=== PATIENT | female | born 1955 | race Caucasian/White ===

== ENCOUNTER 2017-12-25 09:48 | Outpatient (CLI) | payer BC ==
[2017-12-25] MEDS: ALPRAZolam 0.5 MG TABLET PO (10:11)
[2017-12-25] MEDS ORDERED: LIDOCAINE 1% Multi-Dose 20 ML VIAL. INJ (10:15)
[2017-12-25 13:22] LABS: CSF PROTEIN 39.5 mg/dL (15.0-45.0)
[2017-12-25 13:22] LABS: CSF GLUCOSE 168 mg/dL (37-70)
== END 2017-12-25 15:39 | disposition home or self-care (01) ==
LOC: RAD 09:48
DX: R51 Headache (principal); I10 Essential (primary) hypertension; E11.9 Type 2 diabetes mellitus without complications; J43.9 Emphysema, unspecified; I25.10 Atherosclerotic heart disease of native coronary artery without angina pectoris; M79.7 Fibromyalgia; F32.89 Other specified depressive episodes; F41.9 Anxiety disorder, unspecified; Z90.49 Acquired absence of other specified parts of digestive tract; Z95.5 Presence of coronary angioplasty implant and graft; Z79.899 Other long term (current) drug therapy; Z98.890 Other specified postprocedural states; Z90.710 Acquired absence of both cervix and uterus; Z87.440 Personal history of urinary (tract) infections; Z79.82 Long term (current) use of aspirin; Z79.01 Long term (current) use of anticoagulants
CPT/HCPCS: 62270; 82945; 84157

== ENCOUNTER 2019-01-23 18:16 | Observation (INO) | payer BC ==
[~2019-01-23] VITALS: Ht 167.6 cm; Wt 87.8 kg
[~2019-01-23 18:16] MED LIST: ALBU2.5V8 INH; ASPI-252 PO; ASPI325T8 PO; ATOR10TA60 PO; ATOR40TA59 PO; BUSP10TA PO; CARV25TA2 PO; CIPR500T6 PO; CLON0.1T PO; DAPA5TAB PO; DEXT10TA23 PO; DEXT20TA2 PO; DEXT30TA2 PO; DIAZ5TAB PO; EMPA1TAB3 PO; HYDR-2765 PO; HYDR-2769 PO; LINA5TAB PO; MAG355OR12 PO; METF10007 PO; NADO20TA PO; NAPR-677 PO; NORT10CA PO; NORT10SO PO; NORT25CA PO; OXYC1TAB22 PO; PANT40TA5 PO; SERT100T PO; SERT25TA PO; TEMA30CA PO; TIZA4TAB PO; VALIUM10 MG PO; VENL150C PO; VENL150C6 PO; VENL25TA PO; VENL37.5 PO; VENL75CA6 PO; WARF-78 PO; ZALE5CAP PO; ZOLP10TA PO; ZOLP10TA4 PO; ZOLP5TAB5 PO
[2019-01-23] MEDS ORDERED: ASPIRIN CHEWABLE 81 MG TABLET. PO ONE (18:30)
--- NOTE | 2019-01-23 18:31 | PHYS DOC ---
Past Medical History Past Medical History: Anxiety, Arthritis, CAD, Depression, Diabetes-Type II, DVT, Fibromyalgia, High Cholesterol, Hypertension, Migraines (KEVIN POLO) Past Surgical History: Cholecystectomy, Coronary Bypass Surgery, , Hysterectomy, Knee Replacement Additional Past Surgical Histo: neck fusion , BX carpel tunnel , hernia, L KNEE REPLACEMENT (KEVIN POLO) Alcohol Use: Occasionally Drug Use: None (KEVIN POLO) Adult General Chief Complaint Chief Complaint: CHEST PAIN HPI HPI Patient is a 63 year old female with a history of CAD, anxiety, diabetes and hypertension with a triple bypass 13 years ago presents to the ED complaining of chest pain 2 hours ago. Patient states that she has been having acute bronchitis over the last 3 weeks that she is finally getting over. States she thought the pain was from that. States her pain had worsened around 4 PM. Describes the pain as sharp/pressure. Rates the pain as 8 out of 10. Patient also reports a history of blood clots. Complains of mild shortness of breath. Denies lower leg swelling, recent travel, abdominal pain, nausea/vomiting, fever , neck pain, jaw pain vision changes or headache. (KEVIN POLO) Review of Systems Review of Systems Constitutional: Denies fever or chills [] Eyes: Denies change in visual acuity, redness, or eye pain [] HENT: Denies nasal congestion or sore throat [] Respiratory: Complains of shortness of breath. Denies cough. [] Cardiovascular: No additional information not addressed in HPI [] GI: Denies abdominal pain, nausea, vomiting, bloody stools or diarrhea [] : Denies dysuria or hematuria [] Musculoskeletal: Denies back pain or joint pain [] Integument: Denies rash or skin lesions [] Neurologic: Denies headache, focal weakness or sensory changes [] All other systems were reviewed and found to be within normal limits, except as documented in this note. (KEVIN POLO) Current Medications Current Medications Current Medications Medications (Trade) Dose Ordered Sig/Joycelyn Start Time Stop Time Status Last Admin Dose Admin Aspirin (Children'S Aspirin) 324 mg 1X ONCE 01/23/19 18:30 01/23/19 18:31 DC 01/23/19 18:59 324 MG Fentanyl Citrate (Fentanyl 2ml Vial) 75 mcg 1X ONCE 01/23/19 19:00 01/23/19 19:03 DC Ondansetron HCl (Zofran) 4 mg 1X ONCE 01/23/19 19:00 01/23/19 19:03 DC (KEVIN POLO) Allergies Allergies Allergies Coded Allergies Type Severity Reaction Last Updated Verified prochlorperazine edisylate Allergy Severe DYSPNEA 07/20/15 Yes prochlorperazine maleate Allergy Severe DYSPNEA 07/20/15 Yes Penicillins Allergy Intermediate HIVES 07/20/15 Yes ketorolac tromethamine Allergy Intermediate BLISTERS AROUND IV INJECTION SITE 07/20/15 Yes (KEVIN POLO) Physical Exam Physical Exam Constitutional: Well developed, well nourished, no acute distress, non-toxic appearance. [] HENT: Normocephalic, atraumatic Eyes: PERRLA, EOMI, conjunctiva normal, no discharge. [] Neck: Normal range of motion, no tenderness, supple, no stridor. [] Cardiovascular:Heart rate regular rhythm, no murmur [] Lungs & Thorax: Bilateral breath sounds clear to auscultation [] Abdomen: Bowel sounds normal, soft, no tenderness, no masses, no pulsatile masses. [] Skin: Warm, dry, no erythema, no rash. [] Back: No tenderness, no CVA tenderness. [] Extremities: No tenderness, no cyanosis, no clubbing, ROM intact, no edema. [] Neurologic: Alert and oriented X 3, normal motor function, normal sensory function, no focal deficits noted. [] Psychologic: Affect normal, judgement normal, mood normal. [] (KEVIN POLO) Current Patient Data Vital Signs Vital Signs Date Time Temp Pulse Resp B/P (MAP) Pulse Ox O2 Delivery O2 Flow Rate FiO2 01/23/19 18:20 98.2 85 18 170/80 (110) 97 Room Air 98.2 Lab Values Laboratory Tests Test 01/23/19 18:20 01/23/19 18:30 White Blood Count 6.1 x10^3/uL (4.0-11.0) Red Blood Count 4.67 x10^6/uL (3.50-5.40) Hemoglobin 12.9 g/dL (12.0-15.5) Hematocrit 40.3 % (36.0-47.0) Mean Corpuscular Volume 86 fL (79-100) Mean Corpuscular Hemoglobin 28 pg (25-35) Mean Corpuscular Hemoglobin Concent 32 g/dL (31-37) Red Cell Distribution Width 14.2 % (11.5-14.5) Platelet Count 223 x10^3/uL (140-400) Neutrophils (%) (Auto) 44 % (31-73) Lymphocytes (%) (Auto) 46 % (24-48) Monocytes (%) (Auto) 7 % (0-9) Eosinophils (%) (Auto) 2 % (0-3) Basophils (%) (Auto) 1 % (0-3) Neutrophils # (Auto) 2.7 x10^3uL (1.8-7.7) Lymphocytes # (Auto) 2.8 x10^3/uL (1.0-4.8) Monocytes # (Auto) 0.4 x10^3/uL (0.0-1.1) Eosinophils # (Auto) 0.1 x10^3/uL (0.0-0.7) Basophils # (Auto) 0.0 x10^3/uL (0.0-0.2) D-Dimer (Desiree) 0.34 ug/mlFEU (0.00-0.50) Sodium Level 138 mmol/L (136-145) Potassium Level 4.5 mmol/L (3.5-5.1) Chloride Level 98 mmol/L (98-107) Carbon Dioxide Level 28 mmol/L (21-32) Anion Gap 12 (6-14) Blood Urea Nitrogen 15 mg/dL (7-20) Creatinine 1.0 mg/dL (0.6-1.0) Estimated GFR (Cockcroft-Gault) 56.2 BUN/Creatinine Ratio 15 (6-20) Glucose Level 193 mg/dL (70-99) H Calcium Level 9.6 mg/dL (8.5-10.1) Magnesium Level 1.7 mg/dL (1.8-2.4) L Total Bilirubin 0.3 mg/dL (0.2-1.0) Aspartate Amino Transferase (AST) 13 U/L (15-37) L Alanine Aminotransferase (ALT) 21 U/L (14-59) Alkaline Phosphatase 39 U/L (46-116) L Troponin I Quantitative < 0.017 ng/mL (0.000-0.055) Total Protein 7.9 g/dL (6.4-8.2) Albumin 4.0 g/dL (3.4-5.0) Albumin/Globulin Ratio 1.0 (1.0-1.7) Urine Collection Type Unknown Urine Color Yellow Urine Clarity Clear Urine pH 6.0 Urine Specific [place] 1.020 Urine Protein Negative mg/dL (NEG-TRACE) Urine Glucose (UA) >=1000 mg/dL (NEG) Urine Ketones (Stick) Negative mg/dL (NEG) Urine Blood Negative (NEG) Urine Nitrite Negative (NEG) Urine Bilirubin Negative (NEG) Urine Urobilinogen Dipstick 0.2 mg/dL (0.2 mg/dL) Urine Leukocyte Esterase Negative (NEG) Urine RBC 0 /HPF (0-2) Urine WBC 0 /HPF (0-4) Urine Squamous Epithelial Cells Few /LPF Urine Bacteria 0 /HPF (0-FEW) Urine Yeast Present /HPF Laboratory Tests 01/23/19 18:20 Laboratory Tests 01/23/19 18:20 (KEVIN POLO) EKG EKG [] (KEVIN POLO) Radiology/Procedures Radiology/Procedures [] (KEVIN POLO) Course & Med Decision Making Course & Med Decision Making Pertinent Labs and Imaging studies reviewed. (See chart for details) Aspirin given upon arrival. Patient resting comfortably at this time. []Discussed lab and imaging findings with patients PCP, Dr. Aden. Agrees to admission and further management patient. Patient stable for admission. Requests cardiology consult. (KEVIN POLO) Course & Med Decision Making Staff Physician Addendum: I was working in the ER during the course of this patient's visit. I was available for consultation as needed, but I was not directly involved in the care of this patient. (ELIANA DRISCOLL MD) Dragon Disclaimer Dragon Disclaimer This electronic medical record was generated, in whole or in part, using a voice recognition dictation system. (KEVIN POLO) Departure Departure Impression: Primary Impression: Chest pain Disposition: 09 ADMITTED INPATIENT Admitting Physician: Tomy Aden (KEVIN POLO) Condition: STABLE Referrals: TOMY ADEN MD (PCP) KEVIN POLO Jan 23, 2019 18:31 ELIANA DRISCOLL MD Jan 24, 2019 04:26
[2019-01-23 18:39] LABS: BASO % 1 % (0-3); EOS # 0.1 x10^3/uL (0.0-0.7); EOS % 2 % (0-3); HEMATOCRIT 40.3 % (36.0-47.0); HEMOGLOBIN 12.9 g/dL (12.0-15.5); LYMPH # 2.8 x10^3/uL (1.0-4.8); LYMPH % 46 % (24-48); MEAN CORPUSCULAR HEMOGLOBIN 28 pg (25-35); MEAN CORPUSCULAR HGB CONC 32 g/dL (31-37); MEAN CORPUSCULAR VOLUME 86 fL (79-100); MONO # 0.4 x10^3/uL (0.0-1.1); MONO % 7 % (0-9); NEUT # 2.7 x10^3uL (1.8-7.7); NEUT % 44 % (31-73); PLATELET COUNT 223 x10^3/uL (140-400); RED BLOOD COUNT 4.67 x10^6/uL (3.50-5.40); RED CELL DISTRIBUTION WIDTH 14.2 % (11.5-14.5); WHITE BLOOD COUNT 6.1 x10^3/uL (4.0-11.0)
[2019-01-23 18:47] LABS: BILIRUBIN,URINE NEGATIVE (NEG); CLARITY,URINE CLEAR; COLOR,URINE YELLOW; NITRITE,URINE NEGATIVE (NEG); PROTEIN,URINE NEGATIVE (NEG-TRACE); UROBILINOGEN,URINE 0.2 mg/dL (0.2 mg/dL)
[2019-01-23 18:51] LABS: BACTERIA,URINE 0 /HPF (0-FEW); RBC,URINE 0 /HPF (0-2); SQUAMOUS EPITHELIAL CELL,UR FEW /LPF; WBC,URINE 0 /HPF (0-4); YEAST,URINE PRESENT /HPF
[2019-01-23 18:51] LABS: CALCIUM 9.6 mg/dL (8.5-10.1); GFR 56.2; POTASSIUM 4.5 mmol/L (3.5-5.1)
[2019-01-23 18:57] LABS: MAGNESIUM 1.7 mg/dL (1.8-2.4); TOTAL BILIRUBIN 0.3 mg/dL (0.2-1.0); TOTAL PROTEIN 7.9 g/dL (6.4-8.2)
[2019-01-23] MEDS ORDERED: fentaNYL PF VIAL 100 MCG/2 ML VIAL IV ONE (19:00)
[2019-01-23] MEDS ORDERED: ONDANSETRON PF 4 MG/2 ML VIAL. IV ONE (19:00)
[2019-01-23] MEDS ORDERED: ACETAMINOPHEN 325 MG TABLET. PO PRN (20:30)
[2019-01-23] MEDS ORDERED: ONDANSETRON PF 4 MG/2 ML VIAL. IV PRN (20:30)
[2019-01-23 21:00] VITALS: BP 147/74
--- NOTE | 2019-01-23 21:00 | NUR ---
Pt admitted to unit from ER with c/o chest pain that started earlier in the day. Pt is A/Ox4, on RA, up adlib and tolerating well. Pt states pain is under her left breast and radiates to left shoulder. H&P and med rec completed, VSS, pt is SR on telemetry, call light within reach, bed in low/locked position. Will continue to monitor for status changes.
[2019-01-23] MEDS ORDERED: CRESTOR10 MG PO (21:36)
[2019-01-23] MEDS ORDERED: ONDA4TAB11 PO (21:45)
[2019-01-23] MEDS ORDERED: TEMA15CA6 PO (21:45)
[2019-01-23] MEDS ORDERED: MULT-245 PO (21:45)
[2019-01-23] MEDS ORDERED: L.AC1CAP6 PO (21:45)
[2019-01-23] MEDS ORDERED: ONDANSETRON ODT 4 MG TAB.RAPDIS. PO PRN (22:15)
[2019-01-23] MEDS: fentaNYL PF VIAL 100 MCG/2 ML VIAL IV PRN (22:27)
[2019-01-23] MEDS ORDERED: TEMAZEPAM 15 MG CAPSULE PO SCH (22:45)
[2019-01-23] MEDS ORDERED: cloNIDine HCL 0.1 MG TABLET PO SCH (22:45)
[2019-01-23] MEDS ORDERED: DEXTROSE 50% 25 GM / 50ML DISP.SYRIN. IV PRN (23:30)
[2019-01-23 23:31] VITALS: BP 129/59
[2019-01-24] MEDS: fentaNYL PF VIAL 100 MCG/2 ML VIAL IV PRN ×3 (02:03→07:59)
[2019-01-24 03:36] VITALS: BP 119/57
[2019-01-24] MEDS ORDERED: MAGNESIUM SULFATE 2GM 50 ML IV ONE (04:00)
--- NOTE | 2019-01-24 05:42 | EKG ---
[facility] [address] [place] [address] Test Date: 2019-01-23 Test Time: 18:23:29 Pat Name: TANIYA DIAZ Department: Room: [facility] Gender: F Engine Wiper: : 1955 Requested By: KEVIN POLO Order Number: [id number] Reading MD: Jian Orozco Measurements Intervals Millen Rate: 80 P: 50 NM: 172 QRS: 2 QRSD: 82 T: 47 QT: 382 QTc: 444 Interpretive Statements SINUS RHYTHM LEFT ATRIAL ABNORMALITY Electronically Signed On 01-28-2019 13:29:18 CDT by Jian Orozco
[2019-01-24 07:00] VITALS: BP 136/70
[2019-01-24] MEDS ORDERED: PANTOPRAZOLE 40 MG TABLET.DR. PO SCH (07:30)
[2019-01-24] MEDS ORDERED: INSULIN LISPRO 300 UNITS/3 ML INSULN.PEN. SQ SCH (07:30)
[2019-01-24] MEDS ORDERED: metFORMIN 500 MG TABLET PO SCH (07:30)
[2019-01-24 07:36] LABS: ALBUMIN 3.5 g/dL (3.4-5.0); CALCIUM 9.1 mg/dL (8.5-10.1); CREATININE 0.8 mg/dL (0.6-1.0); GFR 72.7; POTASSIUM 4.6 mmol/L (3.5-5.1); TOTAL BILIRUBIN 0.3 mg/dL (0.2-1.0)
[2019-01-24] MEDS ORDERED: ASPIRIN ENTERIC COATED 325 MG TABLET.DR. PO SCH (08:00)
--- NOTE | 2019-01-24 08:17 | RAD ---
PORTABLE CHEST 1V History: CHEST PAIN Comparison: December 18, 2017 Findings: Single view of the chest is submitted. There again has been a median sternotomy. Heart size is stable. There is cervical fusion hardware. There is no lobar consolidation, pleural fluid, pneumothorax. There is calcific tendinosis of the bilateral shoulders Impression: 1. No acute radiographic abnormality is identified. Electronically signed by: Herb Bo MD (01/24/2019 8:14 AM) [id number]
[2019-01-24] MEDS ORDERED: LACTOBACILLUS RHAMNOSUS GG 1 CAPSULE. PO SCH (09:00)
[2019-01-24] MEDS ORDERED: LINAGLIPTIN PO SCH (09:00)
[2019-01-24] MEDS ORDERED: SERTRALINE 50 MG TABLET. PO SCH (09:00)
[2019-01-24] MEDS ORDERED: EMPAGLIFLOZIN PO SCH (09:00)
[2019-01-24] MEDS ORDERED: MULTIVITAMIN with MINERAL TABLET. PO SCH (09:00)
--- NOTE | 2019-01-24 09:26 | PDOC2 ---
ABBEY VEGAS CERTIFIED DIABETES EDUCATOR 01/24/19 0926: CARDIAC CONSULT DATE OF CONSULT Date of Consult DATE: 01/24/19 TIME: 09:16 REASON FOR CONSULT Reason for Consult: Chest pain REFERRING PHYSICIAN Referring Physician: Dr. Viveros SOURCE Source: Chart review, Patient HISTORY OF PRESENT ILLNESS HISTORY OF PRESENT ILLNESS This is a 63 yo female who presented secondary to chest pain. Patient reports she has had chronic cough/bronchitis for the last two months. Has been treated with antibiotic and steroids by PCP. Cough persists. Yesterday, began having pain under her left breath when she would cough. Worse with deep breath. Pain seemed to radiated through to her back, which was concerning for her due to her history of CAD s/p CABG. Was unable to get in with her PCP yesterday, so she came into the ED for further evaluation and treatment. Has chronic pain for which she takes Percocet at home. No dizziness, diaphoresis, palpitations, or nausea/vomiting. PAST MEDICAL HISTORY Cardiovascular: CAD, HTN, Hyperlipidemia (DVT) Pulmonary: Asthma, Pulmonary embolus, Pneumonia CENTRAL NERVOUS SYSTEM: Periperal neuropathy GI: No pertinent hx Heme/Onc: No pertinent hx Hepatobiliary: No pertinent hx Psych: Depression Musculoskeletal: low back pain, Osteoarthritis Rheumatologic: Fibromyalgia Infectious disease: No pertinent hx ENT: No pertinent hx Renal/: No pertinent hx Endocrine: Diabetes Dermatology: No pertinent hx PAST SURGICAL HISTORY Past Surgical History: Cholecystectomy, CABG, Hernia Repair, Total knee replacement (left ), Tonsillectomy, Hysterectomy FAMILY HISTORY Family History: Heart Disease SOCIAL HISTORY Smoke: No ALCOHOL: none Drugs: None Lives: Alone CURRENT MEDICATIONS CURRENT MEDICATIONS Current Medications Medications (Trade) Dose Ordered Sig/Joycelyn Route PRN Reason Start Time Stop Time Status Last Admin Dose Admin Aspirin (Children'S Aspirin) 324 mg 1X ONCE PO 01/23/19 18:30 01/23/19 18:31 DC 01/23/19 18:59 Fentanyl Citrate (Fentanyl 2ml Vial) 75 mcg 1X ONCE IV 01/23/19 19:00 01/23/19 19:03 DC 01/23/19 20:08 Ondansetron HCl (Zofran) 4 mg 1X ONCE IV 01/23/19 19:00 01/23/19 19:03 DC 01/23/19 20:06 Fentanyl Citrate (Fentanyl 2ml Vial) 50 mcg PRN Q1HR PRN IV PAIN 01/23/19 20:30 01/24/19 20:29 01/24/19 07:59 Clonidine HCl (Catapres) 0.1 mg QHS PO 01/23/19 22:45 01/23/19 22:45 Temazepam (Restoril) 15 mg QHS PO 01/23/19 22:45 01/23/19 22:45 Magnesium Sulfate 50 ml @ 25 mls/hr 1X ONCE IV 01/24/19 04:00 01/24/19 05:59 DC 01/24/19 04:23 ALLERGIES ALLERGIES: Coded Allergies: prochlorperazine edisylate (Verified Allergy, Severe, DYSPNEA, 07/20/15) prochlorperazine maleate (Verified Allergy, Severe, DYSPNEA, 07/20/15) Penicillins (Verified Allergy, Intermediate, HIVES, 07/20/15) ketorolac tromethamine (Verified Allergy, Intermediate, BLISTERS AROUND IV INJECTION SITE, 07/20/15) ROS Review of System 14 point ROS conducted with pertinent positives noted above in HPI. PHYSICAL EXAM General: Alert, Oriented X3, Cooperative HEENT: Atraumatic Lungs: Clear to auscultation, Normal air movement Heart: Regular rate, Normal S1, Normal S2, No murmurs Abdomen: No tenderness Extremities: No edema, Normal pulses Skin: No significant lesion Neuro: Normal speech, Sensation intact Psych/Mental Status: Mental status NL, Other (anxious ) MUSCULOSKELETAL: Osteoarthritic changes both hands VITALS VITALS Vital Signs Date Time Temp Pulse Resp B/P (MAP) Pulse Ox O2 Delivery O2 Flow Rate FiO2 01/24/19 07:59 Room Air 01/24/19 07:00 98.2 72 18 136/70 (92) 97 98.2 LABS Lab: Laboratory Tests Test 01/23/19 18:20 01/23/19 18:30 01/24/19 00:55 01/24/19 06:30 White Blood Count 6.1 x10^3/uL (4.0-11.0) Red Blood Count 4.67 x10^6/uL (3.50-5.40) Hemoglobin 12.9 g/dL (12.0-15.5) Hematocrit 40.3 % (36.0-47.0) Mean Corpuscular Volume 86 fL (79-100) Mean Corpuscular Hemoglobin 28 pg (25-35) Mean Corpuscular Hemoglobin Concent 32 g/dL (31-37) Red Cell Distribution Width 14.2 % (11.5-14.5) Platelet Count 223 x10^3/uL (140-400) Neutrophils (%) (Auto) 44 % (31-73) Lymphocytes (%) (Auto) 46 % (24-48) Monocytes (%) (Auto) 7 % (0-9) Eosinophils (%) (Auto) 2 % (0-3) Basophils (%) (Auto) 1 % (0-3) Neutrophils # (Auto) 2.7 x10^3uL (1.8-7.7) Lymphocytes # (Auto) 2.8 x10^3/uL (1.0-4.8) Monocytes # (Auto) 0.4 x10^3/uL (0.0-1.1) Eosinophils # (Auto) 0.1 x10^3/uL (0.0-0.7) Basophils # (Auto) 0.0 x10^3/uL (0.0-0.2) D-Dimer (Desiree) 0.34 ug/mlFEU (0.00-0.50) Sodium Level 138 mmol/L (136-145) 140 mmol/L (136-145) Potassium Level 4.5 mmol/L (3.5-5.1) 4.6 mmol/L (3.5-5.1) Chloride Level 98 mmol/L (98-107) 102 mmol/L (98-107) Carbon Dioxide Level 28 mmol/L (21-32) 27 mmol/L (21-32) Anion Gap 12 (6-14) 11 (6-14) Blood Urea Nitrogen 15 mg/dL (7-20) 17 mg/dL (7-20) Creatinine 1.0 mg/dL (0.6-1.0) 0.8 mg/dL (0.6-1.0) Estimated GFR (Cockcroft-Gault) 56.2 72.7 BUN/Creatinine Ratio 15 (6-20) 21 (6-20) Glucose Level 193 mg/dL (70-99) 184 mg/dL (70-99) Calcium Level 9.6 mg/dL (8.5-10.1) 9.1 mg/dL (8.5-10.1) Magnesium Level 1.7 mg/dL (1.8-2.4) Total Bilirubin 0.3 mg/dL (0.2-1.0) 0.3 mg/dL (0.2-1.0) Aspartate Amino Transf (AST/SGOT) 13 U/L (15-37) 14 U/L (15-37) Alanine Aminotransferase (ALT/SGPT) 21 U/L (14-59) 19 U/L (14-59) Alkaline Phosphatase 39 U/L (46-116) 31 U/L (46-116) Troponin I Quantitative < 0.017 ng/mL (0.000-0.055) < 0.017 ng/mL (0.000-0.055) < 0.017 ng/mL (0.000-0.055) Total Protein 7.9 g/dL (6.4-8.2) 7.0 g/dL (6.4-8.2) Albumin 4.0 g/dL (3.4-5.0) 3.5 g/dL (3.4-5.0) Albumin/Globulin Ratio 1.0 (1.0-1.7) 1.0 (1.0-1.7) Urine Collection Type Unknown Urine Color Yellow Urine Clarity Clear Urine pH 6.0 Urine Specific [place] 1.020 Urine Protein Negative mg/dL (NEG-TRACE) Urine Glucose (UA) >=1000 mg/dL (NEG) Urine Ketones (Stick) Negative mg/dL (NEG) Urine Blood Negative (NEG) Urine Nitrite Negative (NEG) Urine Bilirubin Negative (NEG) Urine Urobilinogen Dipstick 0.2 mg/dL (0.2 mg/dL) Urine Leukocyte Esterase Negative (NEG) Urine RBC 0 /HPF (0-2) Urine WBC 0 /HPF (0-4) Urine Squamous Epithelial Cells Few /LPF Urine Bacteria 0 /HPF (0-FEW) Urine Yeast Present /HPF Triglycerides Level 128 mg/dL (0-150) Cholesterol Level 154 mg/dL (0-200) LDL Cholesterol, Calculated 77 mg/dL (0-100) VLDL Cholesterol, Calculated 26 mg/dL (0-40) Non-HDL Cholesterol Calculated 103 mg/dL (0-129) HDL Cholesterol 51 mg/dL (40-60) Cholesterol/HDL Ratio 3.0 ECHOCARDIOGRAM ECHOCARDIOGRAM <Conclusion> The left ventricular systolic function is normal and the ejection fraction is within normal range. The Ejection Fraction is 70%. Transmitral Doppler flow pattern is Grade II-pseudonormal filling dynamics. There is mild concentric left ventricular hypertrophy. The left atrium is mildly dilated. The right atrium size is normal. Doppler and Color Flow revealed mild aortic regurgitation. Doppler and Color-flow revealed trace mitral regurgitation. Doppler and Color Flow revealed physiological tricuspid regurgitation. The PA pressure was estimated at 27 mmHg. The pulmonic valve is not well visualized. There is no evidence of significant pericardial effusion. DATE: 12/19/17 1 STRESS TEST STRESS TEST Conclusion 1. Regadenoson cardioisotope stress test did not show any evidence of ischemia or infarct. 2. Normal left ventricular systolic function with ejection fraction calculated at 77%. 3. Low risk for cardiac events. DATE: 12/20/17 1302 HEART CATH HEART CATH Coronaries: The left main is very small in diameter with diffuse disease of 60- 70%. The LAD is 100% blocked in the mid segment. The circumflex is 100% blocked in the midsegment. The RCA has diffuse 30-50% plaquing. The GIBBS graft to the LAD is open and normal. The sequential saphenous vein graft to the first obtuse marginal and the second obtuse marginal is open and normal. All of the small branches of all the major vessels have diffuse disease. Ventriculogram: The left ventricular global ejection fraction was estimated to be about 50%. The left ventricular end-diastolic pressure was 22 mmHg. There was no gradient across the aortic valve. Ascending aortogram: The ascending aorta appears to be normal in size and no other graft was visualized. Impression: This patient has severe stebbins vessel coronary artery disease but no apparent significant disease of the grafts. She also has diffuse disease of the small branches. The left ventricular end-diastolic pressure is elevated. In view of the findings I would recommend medical treatment with tight blood pressure control, diet, exercise and weight loss. DATE: 09/22/16 1637 ASSESSMENT/PLAN ASSESSMENT/PLAN 1. Chest pain, atypical- AMI ruled out. 2. CAD s/p remote CABG; Cath 2016 with patent grafts as noted above. Stress test last year without any evidence of ischemia or infarct 3. Hypertension; controlled 5. Hyperlipidemia; statin 6. Diabetes, II; as per PCP 7. Hypomagnesemia; replaced 8. Bronchitis 9. Anxiety Recommendations check lipids Echo to assess LV systolic function Continue ASA, statin, BB Treatment of bronchitis as per PCP Supportive care Further recommendations pending above TARYN ALLRED MD 01/24/19 3907: CARDIAC CONSULT ASSESSMENT/PLAN ASSESSMENT/PLAN Patient seen and examined. Agree with ENVIRONMENTAL HEALTH PHYSICIAN's assessment and plan. Chest pain with atypical features and most probably musculoskeletal Myocardial infarction has been ruled out 2-D echo showed normal LV function without any wall motion abnormalities Follow-up with our office in 1 month Thank you for your consultation ABBEY VEGAS APRN Jan 24, 2019 09:26 ATRYN ALLRED MD Jan 24, 2019 16:57
[2019-01-24] MEDS: CARVEDILOL 12.5 MG TABLET. PO SCH ×2 (10:45→17:55)
[2019-01-24] MEDS: oxyCODONE/APAP 10/325 1 TAB TABLET PO PRN ×2 (10:48→17:56)
[2019-01-24 11:06] VITALS: BP 147/76
--- NOTE | 2019-01-24 11:51 | NUR ---
SS following for discharge planning. SS reviewed pt chart. Pt is from home and is currently on room air. No discharge needs noted at this time. SS will continue to follow for pending discharge needs.
[2019-01-24] MEDS ORDERED: DEXTROSE 50% 25 GM / 50ML DISP.SYRIN. IV PRN (13:00)
[2019-01-24] MEDS ORDERED: ALPRAZolam 0.25 MG TABLET PO PRN (13:00)
[2019-01-24] MEDS: INSULIN LISPRO 300 UNITS/3 ML INSULN.PEN. SQ SCH ×4 (13:26→17:00)
[2019-01-24 15:00] VITALS: BP 137/65
--- NOTE | 2019-01-24 15:04 | CARD ---
MR#: [id number] Date of Study: 01/24/2019 Ordering Physician: ABBEY VEGAS, Referring Physician: TOMY LION Tech: Bailee Dobbs APPROVED REPORT EXAM: Two-dimensional and M-mode echocardiogram with Doppler and color Doppler. Other Information Quality : AverageHR: 73bpm INDICATION Chest Pain RISK FACTORS Hyperlipidemia Diabetes 2D DIMENSIONS RVDd3.1 (2.9-3.5cm)Left Atrium(2D)4.4 (1.6-4.0cm) IVSd1.3 (0.7-1.1cm)Aortic Root(2D)3.2 (2.0-3.7cm) LVDd4.9 (3.9-5.9cm)LVOT Diameter2.1 (1.8-2.4cm) PWd1.2 (0.7-1.1cm)LVDs3.1 (2.5-4.0cm) FS (%) 37.4 %SV77.6 ml LVEF(%)67.2 (>50%) Aortic Valve AoV Peak Tawanda.135.9cm/sAoV VTI27.2cm AO Peak GR.7.4mmHgLVOT VTI 20.53cm AO Mean GR.4mmHgAI P 1/2 Fieh118ou Mitral Valve MV E Agiwwgva73.8cm/sMV DECEL [id number] MV A Jlaxpkfe10.1cm/sE/A Ratio1.1 TDI Lateral E' P. V8.69cm/sMedial E' P. V8.69cm/s E/Lateral E'8.6E/Medial E'8.6 Tricuspid Valve TR P. Lyokvsoy642rx/sRAP [id number] TR Peak Gr.51zrXkMTNH79tcUg Pulmonary Vein S1 Urowacjj86.3cm/sS2 Zgwdrrrw25.04cm/s D2 Wbfwstzf56.0cm/sPVa mvfoiqwt251rfag LEFT VENTRICLE The left ventricle is normal size. There is moderate concentric left ventricular hypertrophy. The lef t ventricular systolic function is normal. The Ejection Fraction is 60%. There is normal LV segmental wall motion. Transmitral Doppler flow pattern is Grade II-pseudonormal filling dynamics. RIGHT VENTRICLE The right ventricle is normal size. There is normal right ventricular wall thickness. The right ventr icular systolic function is normal. ATRIA The left atrium size is normal. The right atrium size is normal. The interatrial septum is intact wit h no evidence for an atrial septal defect or patent foramen ovale as noted on 2-D or Doppler imaging. AORTIC VALVE The aortic valve is normal in structure and function. Doppler and Color Flow revealed mild aortic reg urgitation. There is no significant aortic valvular stenosis. MITRAL VALVE The mitral valve is normal in structure and function. There is no evidence of mitral valve prolapse. There is no mitral valve stenosis. Doppler and Color Flow revealed no mitral valve regurgitation note d. TRICUSPID VALVE The tricuspid valve is normal in structure and function. Doppler and Color Flow revealed trace tricus pid regurgitation with an estimated PAP of 33 mmHg. There is no tricuspid valve stenosis. PULMONIC VALVE The pulmonic valve is not well visualized. Doppler and Color Flow revealed no pulmonic valvular regur gitation. GREAT VESSELS The aortic root is normal in size. The IVC is normal in size and collapses >50% with inspiration. PERICARDIAL EFFUSION There is no evidence of significant pericardial effusion. Critical Notification Critical Value: No <Conclusion> The left ventricular systolic function is normal. The Ejection Fraction is 60%. There is normal LV segmental wall motion. Mild aortic regurgitation. Trace tricuspid regurgitation with an estimated PAP of 33 mmHg. There is no evidence of significant pericardial effusion. Signed by : Jian Orozco, Electronically Approved : 01/24/2019 15:03:16
[2019-01-24] MEDS ORDERED: IOHEXOL 350 MG/ML 100 ML VIAL. IV ONE (17:15)
[2019-01-24] MEDS ORDERED: CONTRAST GIVEN. MC PRN (17:30)
--- NOTE | 2019-01-24 17:50 | HP ---
ADMIT DATE: 01/23/2019 CHIEF COMPLAINT AND HISTORY OF PRESENT ILLNESS: This 63-year-old white female well known to me from followup in the office. The patient presented with chest pain on the day of admission. She admitted to a cough for the last couple of weeks. She has been treated for bronchitis over that period of time. She described the pain as sharp and pressure, 8/10 with a prior history of blood clots. Denied any sweating or dizziness. She has had mild shortness of breath. No lower leg swelling, travel, abdominal pain, etc., She was admitted through the Emergency to rule out cardiac etiology. PAST MEDICAL HISTORY: Remarkable for coronary artery disease, she is status post CABG some 13 years ago. She has arthritis, anxiety, depression, diabetes, fibromyalgia, DVT, hyperlipidemia. PAST SURGICAL HISTORY: She has had a prior cholecystectomy, , hysterectomy, knee replacement, neck fusion, carpal tunnel surgery, left knee replacement and a hernia repair. MEDICATIONS: Brought with the patient, listed on the computer, have been addressed as her allergies. SOCIAL HISTORY: She is a nonsmoker. Rarely drinks alcohol. Uses no drugs. Single, lives at home alone. FAMILY HISTORY: Noncontributory other than coronary artery disease. REVIEW OF SYSTEMS: As mentioned above. PHYSICAL EXAMINATION: GENERAL: She is well-developed, well-nourished white female, in no acute distress at the time of my examination. VITAL SIGNS: Stable. She is afebrile. Blood sugars are elevated. HEENT: Unremarkable. NECK: Supple, without any adenopathy or thyromegaly. CHEST: Clear to auscultation and percussion. HEART: Regular rate and rhythm without S3, S4, or murmur. ABDOMEN: Soft, nontender, without hepatosplenomegaly or mass. EXTREMITIES: Without cyanosis, clubbing, or trace edema. NEUROLOGIC: She is intact. LABORATORY DATA: She has had troponins x 3 that are negative. She had elevated blood sugar since admission and during at the time of my evaluation, awaiting cardiac consultation. IMPRESSION: 1. Chest pain and a history of the patient with coronary artery disease, likely noncardiac and related to the cough from the bronchitis, but awaiting Cardiology consultation. 2. Other problems listed above. PLAN: The patient has been admitted. We will await Cardiology's direction and go from there. TOMY LION MD DR: Jami JOB#: [id number] / [id number]
--- NOTE | 2019-01-24 18:27 | RAD ---
CT angiogram of the chest with contrast: Reason for examination: Chest pain with shortness of breath. Comparison is made to previous study dated 02/01/2011. Helical images were obtained through the chest with intravenous administration 100 cc Omnipaque 350 using PE protocol. 3-D MIPS reconstruction was performed in sagittal and coronal planes. Exposure: One or more of the following individualized dose reduction techniques were utilized for this examination: 1. Automated exposure control 2. Adjustment of the mA and/or kV according to patient size 3. Use of iterative reconstruction technique. No abnormality seen at the thyroid gland. The trachea and mainstem bronchi show no intraluminal lesions. No abnormality seen at the esophagus. The thoracic aorta shows no aneurysmal dilatation or dissection. The heart size is normal with no pericardial effusion. There is no evidence of pulmonary embolus. There are calcified granuloma medially in the right middle lobe and right upper lobe. No infiltrates or pleural effusions are seen. No abnormality seen at the visualized portions of the liver, spleen or adrenal glands. There are postop changes from anterior fusion in the lower cervical spine. There are postop changes in the sternum. No acute bony abnormalities are seen. IMPRESSION: No evidence of pulmonary embolus. No acute abnormality seen in the chest. Electronically signed by: Alix Cardona MD (01/24/2019 6:24 PM) [facility]
[2019-01-24 19:24] VITALS: BP 125/61
--- NOTE | 2019-01-24 20:25 | NUR ---
Pt was d/c by Dr. Aden following a negative CTA of the chest. Pt was instructed to continue current home medications, and to follow up with Dr. Aden in one week. Pt is also to follow up with Dr. Orozco on February 27, 2019 @ 1300. Pt was escorted to personal vehicle to d/c home with self care.
[2019-01-24] MEDS ORDERED: ATORVASTATIN CALCIUM 40 MG TABLET. PO SCH (21:00)
[2019-01-24] MEDS ORDERED: TEMAZEPAM 15 MG CAPSULE PO SCH (22:30)
[2019-01-24] MEDS ORDERED: cloNIDine HCL 0.1 MG TABLET PO SCH (22:30)
[2019-01-27] MEDS ORDERED: metFORMIN 500 MG TABLET PO SCH (07:30)
== END 2019-01-24 21:00 | disposition home or self-care (01) ==
LOC: ER 18:16 → 2 SOUTH 20:06 → ER 20:49
PROVIDERS: ADMIT Family Medicine; ATTEND Family Medicine
DX: R07.89 Other chest pain (principal); I25.10 Atherosclerotic heart disease of native coronary artery without angina pectoris; F41.9 Anxiety disorder, unspecified; E11.9 Type 2 diabetes mellitus without complications; I10 Essential (primary) hypertension; J20.9 Acute bronchitis, unspecified; M19.90 Unspecified osteoarthritis, unspecified site; F32.9 Major depressive disorder, single episode, unspecified; M79.7 Fibromyalgia; E78.5 Hyperlipidemia, unspecified; G43.909 Migraine, unspecified, not intractable, without status migrainosus; Z90.710 Acquired absence of both cervix and uterus; Z82.49 Family history of ischemic heart disease and other diseases of the circulatory system; Z95.1 Presence of aortocoronary bypass graft; Z96.652 Presence of left artificial knee joint; Z90.49 Acquired absence of other specified parts of digestive tract; Z86.711 Personal history of pulmonary embolism; Z86.718 Personal history of other venous thrombosis and embolism; Z98.1 Arthrodesis status
CPT/HCPCS: 36415; 71045; 71275; 80053; 80061; 81001; 82962; 83735; 84484; 85025; 85379; 93005; 93306; 96365; 96366; 96372; 96375; 96376; 99284; G0378; J1815; J2405; J3010; J3475; Q0162; Q9967; G0379

== ENCOUNTER → 2019-03-01 | Outpatient (CLI) | payer BC ==
[~2019-03-01] MED LIST changes: +CRESTOR10 MG PO; +L.AC1CAP6 PO; +MULT-245 PO; +ONDA4TAB11 PO; +REGADENOSON 0.4 MG/5 ML DISP.SYRIN. IV ONE; +TEMA15CA6 PO
--- NOTE | 2019-03-05 10:56 | RAD ---
MR#: [id number] Date of Study: 03/01/2019 Ordering Physician: TARYN ALLRED Referring Physician: NAVA TROTTER Tech: RT Kamilah (R) (N) APPROVED REPORT Test Type: Pharmacological Stress Nurse/Tech: Lizy Soares RN Test Indications: CAD Cardiac History: CABG(), anticoagulants, asthma Medications: See Electronic Medical Record Medical History: See Electronic Medical Record Resting Heart Rate: 73 bpm Resting Blood Pressure: 141/78mmHg Pretest Chest Pain: None Nurse/Tech Notes Clear LS, S1S2, OLIVO (02/15) Consent: The procedure was explained to the patient in lay terms. Informed consent was witnessed. Omega eout was entered into [employer]. History and Stress Test performed by Lizy Soares RN Pharm. Details Pharmacologic stress testing was performed using 0.4mg per 5ml of regadenoson given intravenously ove r 7-10 seconds. Stress Symptoms Dyspnea, Flushing, OLIVO (03/18) POST EXERCISE Reason for Termination: Infusion complete Max HR: 96 bpm Max Blood Pressure: 179/61mmHg Chest Pain: Yes. pressure like pain, no radiation INTERPRETATION Stress EKG Conclusion: The resting EKG shows a sinus rhythm and mild nonspecific ST segment changes. The stress EKG shows no significant changes from baseline. No EKG evidence of stress-induced ischemia. Imaging Protocol IMAGE PROTOCOL: Rest Tc-99m/stress Tc-99m 1 day Rest: Stress: Viability: Radiopharm.Tc99m [id number] Sestamibi [id number] 31mCi Duration 13min. 13min. Img Date 03/01/2019 03/01/2019 Inj-Img [id number]. 60min. Rest Admin Site:IV - Left AntecubitalAdministrator:RT Joi (R)(N) Stress Admin Site: IV - Left AntecubitalAdministrator: RT Kamilah (R)(N) STRESS DATA End Diast. Vol.69.0mlAv. Heart Rate70.0bpm End Syst. Vol.13.0mlCO Index BSA0.0L/min Myocardial Jrla252.0gEject. Srvwdvze40.0% Stress Rates Pk. Fill Rate3.42EDV/secLVtime Pk. Fill 203.06msec Pk. Empty Rate4.78ESV/secLVtime Pk. Nuety755.38msec 1/ Pk. Fill1.64EDV/sec Stress Scores Regional WT0.00Summed WT0.00 Regional WM0.00Summed WM0.00 LV Perfusion The stress scans show no significant defects. The rest scans show no significant defects. Nuclear imaging shows no reversible ischemia or infarct. Wall Motion Left ventricular systolic function is normal with no regional wall motion abnormalities and an ejecti on fraction of greater than 70%. LV Perf. Quant 17 Seg. SSS0.00 17 Seg. SRS0.00 17 Seg. SDS0.00 Stress Defect Extent (% LAD)0.00Rest Defect Extent (% LAD)0.00Rev. Defect Extent (% LAD)0.00 Stress Defect Extent (% LCX) 0.00Rest Defect Extent (% LCX)0.00Rev. Defect Extent (% LCX)0.00 Stress Defect Extent (% RCA)0.00Rest Defect Extent (% RCA)0.00Rev. Defect Extent (% RCA)0.00 Stress Defect Extent (% QUIN)0.00Rest Defect Extent (% QUIN)0.00Rev. Defect Extent (% QUIN)0.00 Conclusion 1. No EKG evidence of stressed induced ischemia. 2. Nuclear imaging shows no reversible ischemia or infarct. 3. Normal left ventricular systolic function with an ejection fraction of greater than 70%. 4. Low risk Lexiscan nuclear stress test. Signed by : Wilver Porter MD Electronically Approved : 03/01/2019 12:57:37
== END | disposition home or self-care (01) ==
LOC: NM 09:15
PROVIDERS: ATTEND Internal Medicine Cardiovascular Disease
DX: I25.10 Atherosclerotic heart disease of native coronary artery without angina pectoris (principal); J45.909 Unspecified asthma, uncomplicated; Z95.1 Presence of aortocoronary bypass graft
CPT/HCPCS: 78452; 93017; A9500; J2785

== ENCOUNTER 2019-04-25 15:46 | Emergency (ER) | payer BC ==
[~2019-04-25] VITALS: Ht 167.6 cm; Wt 95.3 kg
[~2019-04-25 15:46] MED LIST changes: -PANT40TA5 PO; +PANT40TA77 PO; -REGADENOSON 0.4 MG/5 ML DISP.SYRIN. IV ONE
[2019-04-25] MEDS ORDERED: IV NORMAL SALINE 1000ML BAG 1,000 ML IV SCH (16:24)
[2019-04-25] MEDS ORDERED: VANCOMYCIN PER PHARMACY MC ONE (16:30)
[2019-04-25] MEDS: MORPHINE SULFATE 4 MG/ML VIAL. IV/SQ PRN ×2 (16:42→18:00)
[2019-04-25] MEDS ORDERED: ONDANSETRON PF 4 MG/2 ML VIAL. IV ONE (16:45)
[2019-04-25 16:53] LABS: BASO % 0 % (0-3); CALCIUM 9.1 mg/dL (8.5-10.1); CREATININE 0.9 mg/dL (0.6-1.0); EOS # 0.1 x10^3/uL (0.0-0.7); EOS % 1 % (0-3); GFR 63.4; HEMATOCRIT 39.1 % (36.0-47.0); HEMOGLOBIN 12.8 g/dL (12.0-15.5); LYMPH # 2.5 x10^3/uL (1.0-4.8); LYMPH % 33 % (24-48); MEAN CORPUSCULAR HEMOGLOBIN 29 pg (25-35); MEAN CORPUSCULAR HGB CONC 33 g/dL (31-37); MEAN CORPUSCULAR VOLUME 87 fL (79-100); MONO # 0.7 x10^3/uL (0.0-1.1); MONO % 9 % (0-9); NEUT # 4.2 x10^3/uL (1.8-7.7); NEUT % 56 % (31-73); PLATELET COUNT 212 x10^3/uL (140-400); POTASSIUM 4.2 mmol/L (3.5-5.1); RED CELL DISTRIBUTION WIDTH 14.7 % (11.5-14.5); WHITE BLOOD COUNT 7.6 x10^3/uL (4.0-11.0)
[2019-04-25] MEDS ORDERED: VANCOMYCIN 2 GM in IV NORMAL SALINE 500ML BAG 500 ML IV ONE (17:00)
[2019-04-25 17:01] LABS: ALBUMIN 3.4 g/dL (3.4-5.0); ALBUMIN/GLOBULIN RATIO 0.8 (1.0-1.7); TOTAL BILIRUBIN 0.2 mg/dL (0.2-1.0); TOTAL PROTEIN 7.5 g/dL (6.4-8.2)
[2019-04-25 18:00] VITALS: BP 134/59
--- NOTE | 2019-04-25 18:18 | PHYS DOC ---
Past Medical History Past Medical History: Anxiety, Arthritis, CAD, Depression, Diabetes-Type II, DVT, Fibromyalgia, High Cholesterol, Hypertension, Migraines Past Surgical History: Cholecystectomy, Coronary Bypass Surgery, , Hysterectomy, Knee Replacement Additional Past Surgical Histo: neck fusion , BX carpel tunnel , hernia, L KNEE REPLACEMENT Alcohol Use: Occasionally Drug Use: None Adult General Chief Complaint Chief Complaint: OTHER COMPLAINTS HPI HPI Patient is a 63 year old female with history of multiple medical conditions including hypertension, high cholesterol, diabetes type 2,CAD, who presents to the ED today complaining of abscesses she's had on her buttocks and right axilla since 2018. She states she has been following up with her PCP. She states she was seen at an urgent care before and was given a shot of Rocephin a while back at the beginning of symptoms. She states she was seen by the PCP a couple days ago and was started on Bactrim. She states the PCP sent her to the ED to be seen if the abscesses and be given IV antibiotics. Patient denies any fever. Review of Systems Review of Systems Constitutional: Denies fever or chills [] : Denies dysuria or hematuria [] Musculoskeletal: Denies back pain or joint pain [] Integument: Reports abscesses to the right axilla and buttocks Neurologic: Denies headache, focal weakness or sensory changes [] All other systems were reviewed and found to be within normal limits, except as documented in this note. Current Medications Current Medications Current Medications Medications (Trade) Dose Ordered Sig/Joycelyn Start Time Stop Time Status Last Admin Dose Admin Levofloxacin/ Dextrose 150 ml @ 100 mls/hr 1X ONCE 04/25/19 16:30 04/25/19 17:59 DC 04/25/19 16:43 100 MLS/HR Morphine Sulfate (Morphine Sulfate) 4 mg PRN Q15MIN PRN 04/25/19 16:30 04/26/19 16:29 04/25/19 16:42 4 MG Ondansetron HCl (Zofran) 4 mg 1X ONCE 04/25/19 16:45 04/25/19 16:46 DC 04/25/19 16:42 4 MG Sodium Chloride 1,000 ml @ 1,770 mls/hr Q34M 04/25/19 16:24 04/25/19 17:24 DC 04/25/19 16:41 1,770 MLS/HR Vancomycin HCl (Vanco Per Pharmacy) 1 each 1X ONCE 04/25/19 16:30 04/25/19 16:31 UNV Vancomycin HCl 2 gm/Sodium Chloride 500 ml @ 250 mls/hr 1X ONCE 04/25/19 17:00 04/25/19 18:59 Allergies Allergies Allergies Coded Allergies Type Severity Reaction Last Updated Verified prochlorperazine edisylate Allergy Severe DYSPNEA 07/20/15 Yes prochlorperazine maleate Allergy Severe DYSPNEA 07/20/15 Yes Penicillins Allergy Intermediate HIVES 07/20/15 Yes ketorolac tromethamine Allergy Intermediate BLISTERS AROUND IV INJECTION SITE 07/20/15 Yes Physical Exam Physical Exam Constitutional: Well developed, well nourished, no acute distress, non-toxic appearance. [] Skin: Warm, dry, right axilla with an open wound approximately 2 x 2 centimeters with slight cellulitis. There is a couple palpable none indurated areas on the right axilla approximately 3 of them with no fluctuance. Right back to With approximately 3 areas of cellulitis each approximately 1 x 1 cm. None of them is draining. There is no fluctuance to the area, no drainage. Back: No tenderness, no CVA tenderness. [] Extremities: No tenderness, no cyanosis, no clubbing, ROM intact, no edema. [] Neurologic: Alert and oriented X 3, normal motor function, normal sensory function, no focal deficits noted. [] Psychologic: Affect normal, judgement normal, mood normal. [] Current Patient Data Vital Signs Vital Signs Date Time Temp Pulse Resp B/P (MAP) Pulse Ox O2 Delivery O2 Flow Rate FiO2 04/25/19 16:42 20 04/25/19 16:06 99.0 91 158/76 (103) 100 Room Air 99.0 Lab Values Laboratory Tests Test 04/25/19 16:15 White Blood Count 7.6 x10^3/uL (4.0-11.0) Red Blood Count 4.50 x10^6/uL (3.50-5.40) Hemoglobin 12.8 g/dL (12.0-15.5) Hematocrit 39.1 % (36.0-47.0) Mean Corpuscular Volume 87 fL (79-100) Mean Corpuscular Hemoglobin 29 pg (25-35) Mean Corpuscular Hemoglobin Concent 33 g/dL (31-37) Red Cell Distribution Width 14.7 % (11.5-14.5) H Platelet Count 212 x10^3/uL (140-400) Neutrophils (%) (Auto) 56 % (31-73) Lymphocytes (%) (Auto) 33 % (24-48) Monocytes (%) (Auto) 9 % (0-9) Eosinophils (%) (Auto) 1 % (0-3) Basophils (%) (Auto) 0 % (0-3) Neutrophils # (Auto) 4.2 x10^3/uL (1.8-7.7) Lymphocytes # (Auto) 2.5 x10^3/uL (1.0-4.8) Monocytes # (Auto) 0.7 x10^3/uL (0.0-1.1) Eosinophils # (Auto) 0.1 x10^3/uL (0.0-0.7) Basophils # (Auto) 0.0 x10^3/uL (0.0-0.2) Sodium Level 136 mmol/L (136-145) Potassium Level 4.2 mmol/L (3.5-5.1) Chloride Level 99 mmol/L (98-107) Carbon Dioxide Level 25 mmol/L (21-32) Anion Gap 12 (6-14) Blood Urea Nitrogen 16 mg/dL (7-20) Creatinine 0.9 mg/dL (0.6-1.0) Estimated GFR (Cockcroft-Gault) 63.4 BUN/Creatinine Ratio 18 (6-20) Glucose Level 234 mg/dL (70-99) H Lactic Acid Level 1.8 mmol/L (0.4-2.0) Calcium Level 9.1 mg/dL (8.5-10.1) Total Bilirubin 0.2 mg/dL (0.2-1.0) Aspartate Amino Transferase (AST) 9 U/L (15-37) L Alanine Aminotransferase (ALT) 18 U/L (14-59) Alkaline Phosphatase 36 U/L (46-116) L Total Protein 7.5 g/dL (6.4-8.2) Albumin 3.4 g/dL (3.4-5.0) Albumin/Globulin Ratio 0.8 (1.0-1.7) L Procalcitonin < 0.10 ng/mL (0.00-0.10) Laboratory Tests 04/25/19 16:15 Laboratory Tests 04/25/19 16:15 EKG EKG [] Radiology/Procedures Radiology/Procedures [] Course & Med Decision Making Course & Med Decision Making Pertinent Labs and Imaging studies reviewed. (See chart for details) This is a 63-year-old female patient presented to the ED today complaining of abscesses to the right axilla and right buttock she's had the symptoms since . Currently on Bactrim. Patient states she was sent to the ED for IV antibiotics. CBC with normal WBC, CMP with no acute findings, lactic is normal. Patient was given Levaquin IV in the ED. Spoke with Dr. Lion. Patient will be discharged on cephalexin and to continue taking the Bactrim she has. F/u Dr. Lion in the next 1 week [employer] Disclaimer Dragon Disclaimer This electronic medical record was generated, in whole or in part, using a voice recognition dictation system. Departure Departure Impression: Primary Impression: Abscess and cellulitis of gluteal region Additional Impression: Abscess of axilla, right Disposition: HOME, SELF-CARE Condition: STABLE Referrals: TOMY LION MD (PCP) follow up in 1 week Patient Instructions: Abscess, Cellulitis, [id number] Additional Instructions: You were evaluated in the emergency room, your abscesses appear to be improving, continue taking Bactrim. We put you on cephalexin, take it as prescribed until completed. Please follow-up with your doctor in the next 1-2 weeks. Scripts Cephalexin (CEPHALEXIN) 500 Mg Tablet 1 TAB PO QID, #40 TAB Prov: MICHAEL SWENSON APRN 04/25/19 Problem Qualifiers MICHAEL SWENSON [employer] SERV[employer] SPECIALIST Apr 25, 2019 18:18
[2019-04-25] MEDS ORDERED: CEPH500T PO (18:27)
== END 2019-04-25 18:43 | disposition home or self-care (01) ==
LOC: ER 15:46
DX: L03.317 Cellulitis of buttock (principal); L02.411 Cutaneous abscess of right axilla; I10 Essential (primary) hypertension; G43.909 Migraine, unspecified, not intractable, without status migrainosus; E78.00 Pure hypercholesterolemia, unspecified; E11.9 Type 2 diabetes mellitus without complications; I25.10 Atherosclerotic heart disease of native coronary artery without angina pectoris; F41.9 Anxiety disorder, unspecified; F32.9 Major depressive disorder, single episode, unspecified; Z95.1 Presence of aortocoronary bypass graft; Z88.0 Allergy status to penicillin; Z88.8 Allergy status to other drugs, medicaments and biological substances
CPT/HCPCS: 36415; 80053; 83605; 84145; 85025; 87040; 96365; 96375; 99284; J1956; J2270; J2405; J7030

== ENCOUNTER 2019-10-11 20:59 | Emergency (ER) | payer BC ==
[~2019-10-11] VITALS: Ht 165.1 cm; Wt 99.8 kg
[~2019-10-11 20:59] MED LIST changes: +CEPH500T PO; +CLIN300C8 PO; +ONDA-84 PO; -ONDA4TAB11 PO; -TIZA4TAB PO; +TIZA4TAB2 PO
[2019-10-11 21:48] LABS: BASO % 1 % (0-3); EOS % 1 % (0-3); HEMATOCRIT 43.3 % (36.0-47.0); HEMOGLOBIN 14.2 g/dL (12.0-15.5); LYMPH # 3.6 x10^3/uL (1.0-4.8); LYMPH % 43 % (24-48); MEAN CORPUSCULAR HEMOGLOBIN 28 pg (25-35); MEAN CORPUSCULAR HGB CONC 33 g/dL (31-37); MEAN CORPUSCULAR VOLUME 85 fL (79-100); MONO # 0.7 x10^3/uL (0.0-1.1); MONO % 8 % (0-9); NEUT # 4.1 x10^3/uL (1.8-7.7); NEUT % 48 % (31-73); PLATELET COUNT 258 x10^3/uL (140-400); RED BLOOD COUNT 5.12 x10^6/uL (3.50-5.40); RED CELL DISTRIBUTION WIDTH 15.5 % (11.5-14.5); WHITE BLOOD COUNT 8.4 x10^3/uL (4.0-11.0)
[2019-10-11 21:56] LABS: PROTHROMBIN TIME PATIENT 13.5 SEC (11.7-14.0)
[2019-10-11 21:57] LABS: CALCIUM 9.6 mg/dL (8.5-10.1); CREATININE 0.8 mg/dL (0.6-1.0); GFR 72.4; POTASSIUM 4.3 mmol/L (3.5-5.1)
[2019-10-11 22:08] LABS: BILIRUBIN,URINE NEGATIVE (NEG); CLARITY,URINE CLEAR; COLOR,URINE YELLOW; NITRITE,URINE NEGATIVE (NEG); PROTEIN,URINE NEGATIVE (NEG-TRACE); UROBILINOGEN,URINE 0.2 mg/dL (0.2 mg/dL)
[2019-10-11 22:12] LABS: MAGNESIUM 1.6 mg/dL (1.8-2.4); TOTAL BILIRUBIN 0.3 mg/dL (0.2-1.0); TOTAL PROTEIN 8.1 g/dL (6.4-8.2)
--- NOTE | 2019-10-11 22:12 | RAD ---
PORTABLE CHEST 1V Clinical History: Chest pain Technique: AP view of the chest was obtained at 10/11/2019 9:39 PM. Comparison: None. Findings: The cardiomediastinal silhouette is normal. The pulmonary vasculature is normal. The lungs and pleural margins are clear. There is previous median sternotomy wires. There has been prior anterior fusion of the lower C-spine. Impression: No evidence of an acute cardiopulmonary process. Electronically signed by: Lencho Burkett III, MD (10/11/2019 10:10 PM) [facility]
[2019-10-11 22:18] LABS: SQUAMOUS EPITHELIAL CELL,UR MOD /LPF
[2019-10-11 22:19] LABS: BACTERIA,URINE 0 /HPF (0-FEW); RBC,URINE 0 /HPF (0-2); WBC,URINE 20-40 /HPF (0-4); YEAST,URINE PRESENT /HPF
[2019-10-11] MEDS ORDERED: ONDANSETRON PF 4 MG/2 ML VIAL. ONE (22:42)
[2019-10-11] MEDS ORDERED: MORPHINE SULFATE 4 MG/ML VIAL. IV ONE (23:00)
[2019-10-11] MEDS ORDERED: MAGNESIUM SULFATE 2GM 50 ML IV ONE (23:00)
[2019-10-11] MEDS ORDERED: ONDANSETRON PF 4 MG/2 ML VIAL. IV ONE (23:00)
--- NOTE | 2019-10-12 01:54 | PHYS DOC ---
Past Medical History Past Medical History: Anxiety, Diabetes-Type II, High Cholesterol, Migraines Past Surgical History: Cholecystectomy, , Hysterectomy, Knee Replacement Additional Past Surgical Histo: CARDIAC TRIPLE BYPASS CARPAL TUNNEL, C SPINE FUSION Alcohol Use: None Drug Use: None Adult General Chief Complaint Chief Complaint: CHEST PAIN HPI HPI Patient is a 64 year old female who presented to ER today for evaluation of left-sided chest pain radiated to her left back area has been going on for 3 days. Pain is worse with cough or deep breathing or palpation. Patient says she was sleeping 3 days ago and her cat Jumped on the left-sided her chest and she had been having pain since. She denies any nausea or vomiting, no trouble breathing. She says there is a bruise on her chest where her cat jumped on it. She denies any fever. sHe denies any cough. All other ROS is negative unless otherwise noted in HPI Review of Systems Review of Systems See above Current Medications Current Medications Current Medications Medications (Trade) Dose Ordered Sig/Joycelyn Start Time Stop Time Status Last Admin Dose Admin Magnesium Sulfate 50 ml @ 25 mls/hr 1X ONCE 10/11/19 23:00 10/12/19 00:59 DC 10/11/19 22:48 25 MLS/HR Morphine Sulfate (Morphine Sulfate) 4 mg 1X ONCE 10/11/19 23:00 10/11/19 23:01 DC 10/11/19 22:39 4 MG Ondansetron HCl (Zofran) 4 mg 1X ONCE 10/11/19 23:00 10/11/19 23:01 DC 10/11/19 22:48 4 MG Allergies Allergies Allergies Coded Allergies Type Severity Reaction Last Updated Verified prochlorperazine edisylate Allergy Severe DYSPNEA 07/20/15 Yes prochlorperazine maleate Allergy Severe DYSPNEA 07/20/15 Yes Penicillins Allergy Intermediate HIVES 07/20/15 Yes ketorolac tromethamine Allergy Intermediate BLISTERS AROUND IV INJECTION SITE 07/20/15 Yes Physical Exam Physical Exam See above Constitutional: Well developed, well nourished, no acute distress, non-toxic appearance. [] HENT: Normocephalic, atraumatic, bilateral external ears normal, oropharynx moist, no oral exudates, nose normal. [] Eyes: PERRLA, EOMI, conjunctiva normal, no discharge. [] Neck: Normal range of motion, no tenderness, supple, no stridor. [] Cardiovascular:Heart rate regular rhythm, no murmur [] Lungs & Thorax: Bilateral breath sounds clear to auscultation. There is a baseball size skin contusion on left side anterior chest and left side posterior chest. NO CREPITUS. Abdomen: Bowel sounds normal, soft, no tenderness, no masses, no pulsatile masses. [] Skin: Warm, dry, no erythema, no rash. [] Back: No tenderness, no CVA tenderness. [] Extremities: No tenderness, no cyanosis, no clubbing, ROM intact, no edema. [] Neurologic: Alert and oriented X 3, normal motor function, normal sensory function, no focal deficits noted. [] Psychologic: Affect normal, judgement normal, mood normal. [] Current Patient Data Vital Signs Vital Signs Date Time Temp Pulse Resp B/P (MAP) Pulse Ox O2 Delivery O2 Flow Rate FiO2 10/12/19 02:06 82 16 159/85 (109) 97 Room Air 10/11/19 21:02 98.4 98.4 Lab Values Laboratory Tests Test 10/11/19 21:13 10/11/19 21:56 White Blood Count 8.4 x10^3/uL (4.0-11.0) Red Blood Count 5.12 x10^6/uL (3.50-5.40) Hemoglobin 14.2 g/dL (12.0-15.5) Hematocrit 43.3 % (36.0-47.0) Mean Corpuscular Volume 85 fL (79-100) Mean Corpuscular Hemoglobin 28 pg (25-35) Mean Corpuscular Hemoglobin Concent 33 g/dL (31-37) Red Cell Distribution Width 15.5 % (11.5-14.5) H Platelet Count 258 x10^3/uL (140-400) Neutrophils (%) (Auto) 48 % (31-73) Lymphocytes (%) (Auto) 43 % (24-48) Monocytes (%) (Auto) 8 % (0-9) Eosinophils (%) (Auto) 1 % (0-3) Basophils (%) (Auto) 1 % (0-3) Neutrophils # (Auto) 4.1 x10^3/uL (1.8-7.7) Lymphocytes # (Auto) 3.6 x10^3/uL (1.0-4.8) Monocytes # (Auto) 0.7 x10^3/uL (0.0-1.1) Eosinophils # (Auto) 0.0 x10^3/uL (0.0-0.7) Basophils # (Auto) 0.0 x10^3/uL (0.0-0.2) Prothrombin Time 13.5 SEC (11.7-14.0) Prothrombin Time INR 1.1 (0.8-1.1) Sodium Level 141 mmol/L (136-145) Potassium Level 4.3 mmol/L (3.5-5.1) Chloride Level 103 mmol/L (98-107) Carbon Dioxide Level 27 mmol/L (21-32) Anion Gap 11 (6-14) Blood Urea Nitrogen 14 mg/dL (7-20) Creatinine 0.8 mg/dL (0.6-1.0) Estimated GFR (Cockcroft-Gault) 72.4 BUN/Creatinine Ratio 18 (6-20) Glucose Level 139 mg/dL (70-99) H Calcium Level 9.6 mg/dL (8.5-10.1) Magnesium Level 1.6 mg/dL (1.8-2.4) L Total Bilirubin 0.3 mg/dL (0.2-1.0) Aspartate Amino Transferase (AST) 16 U/L (15-37) Alanine Aminotransferase (ALT) 28 U/L (14-59) Alkaline Phosphatase 39 U/L (46-116) L Troponin I Quantitative < 0.017 ng/mL (0.000-0.055) DT-Gwn-F-Type Natriuretic Peptide 210 pg/mL (0-124) H Total Protein 8.1 g/dL (6.4-8.2) Albumin 4.0 g/dL (3.4-5.0) Albumin/Globulin Ratio 1.0 (1.0-1.7) Lipase 335 U/L (73-393) Urine Collection Type Unknown Urine Color Yellow Urine Clarity Clear Urine pH 5.0 Urine Specific [place] >=1.030 Urine Protein Negative mg/dL (NEG-TRACE) Urine Glucose (UA) >=1000 mg/dL (NEG) Urine Ketones (Stick) Negative mg/dL (NEG) Urine Blood Negative (NEG) Urine Nitrite Negative (NEG) Urine Bilirubin Negative (NEG) Urine Urobilinogen Dipstick 0.2 mg/dL (0.2 mg/dL) Urine Leukocyte Esterase Negative (NEG) Urine RBC 0 /HPF (0-2) Urine WBC 20-40 /HPF (0-4) Urine Squamous Epithelial Cells Mod /LPF Urine Bacteria 0 /HPF (0-FEW) Urine Mucus Mod /LPF Urine Yeast Present /HPF Laboratory Tests 10/11/19 21:13 Laboratory Tests 10/11/19 21:13 EKG EKG EKG WAS READ BY THIS PHYSICIAN AT 2110, RATE OF 80BPM, NO STEMI. Radiology/Procedures Radiology/Procedures [][facility] [address] [place] [address] IMAGING REPORT Signed PATIENT: TANIYA DIAZ ACCOUNT: [id number] : 1955 LOCATION: ER AGE: 64 SEX: F EXAM STATUS: PRE ER ORD. PHYSICIAN: RUBY PERAZA DO REASON: CHEST PAIN 12 PROCEDURE: PORTABLE CHEST 1V PORTABLE CHEST 1V Clinical History: Chest pain Technique: AP view of the chest was obtained at 10/11/2019 9:39 PM. Comparison: None. Findings: The cardiomediastinal silhouette is normal. The pulmonary vasculature is normal. The lungs and pleural margins are clear. There is previous median sternotomy wires. There has been prior anterior fusion of the lower C-spine. Impression: No evidence of an acute cardiopulmonary process. Electronically signed by: Angela St III, MD (10/11/2019 10:10 PM) [facility] DICTATED and SIGNED BY: ANGELA ST III, MD DATE: 10/11/192209 Course & Med Decision Making Course & Med Decision Making Pertinent Labs and Imaging studies reviewed. (See chart for details) chest pain IS clearly muscular skeletal due to injury. She will be discharged home. Dragon Disclaimer Dragon Disclaimer This electronic medical record was generated, in whole or in part, using a voice recognition dictation system. Departure Departure Impression: Primary Impression: Musculoskeletal chest pain Additional Impression: Chest wall contusion Disposition: HOME, SELF-CARE Condition: STABLE Referrals: TOMY LION MD (PCP) FOLLOW UP WITH YOUR DOCTOR ON MONDAY. RETURN IF YOU HAVE WORSEN CHEST PAIN AND SHORTNESS OF AIR. Patient Instructions: Chest Contusion, Chest Pain (Nonspecific) The HEART Score for CP Pts HEART Score for Chest Pain: HEART Score for Chest Pain Response (Comments) Value History Slighlty/Non-Suspicious 0 ECG Normal 0 Age >45 - < 65 1 Risk Factors >3 Risk Factors or Hx CAD 2 Troponin < Normal Limit 0 Total 3 Risk Factors: Risk Factors: DM, Current or recent (<one month) smoker, HTN, HLP, family history of CAD, obesity. Risk Scores: Score 0 - 3: 2.5% MACE over next 6 weeks - Discharge Home Score 4 - 6: 20.3% MACE over next 6 weeks - Admit for Clinical Observation Score 7 - 10: 72.7% MACE over next 6 weeks - Early Invasive Strategies Problem Qualifiers RUBY PERAZA DO Oct 12, 2019 01:54
[2019-10-12 02:06] VITALS: BP 159/85
--- NOTE | 2019-10-12 13:50 | EKG ---
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
== END 2019-10-12 02:00 | disposition home or self-care (01) ==
LOC: ER 20:59
DX: S20.212A Contusion of left front wall of thorax, initial encounter (principal); F41.9 Anxiety disorder, unspecified; E11.9 Type 2 diabetes mellitus without complications; E78.00 Pure hypercholesterolemia, unspecified; G43.909 Migraine, unspecified, not intractable, without status migrainosus; Z88.0 Allergy status to penicillin; Z88.8 Allergy status to other drugs, medicaments and biological substances; W55.09XA Other contact with cat, initial encounter; Y93.89 Activity, other specified; Y92.89 Other specified places as the place of occurrence of the external cause; Y99.8 Other external cause status
CPT/HCPCS: 36415; 71045; 80053; 81001; 83690; 83735; 83880; 84484; 85025; 85610; 87086; 93005; 96365; 96366; 96375; 99285; J2270; J2405; J3475

== ENCOUNTER 2020-02-10 13:07 | Emergency (ER) | payer BC ==
[~2020-02-10] VITALS: Ht 167.6 cm; Wt 96.6 kg
[2020-02-10] MEDS ORDERED: NITROGLYCERIN SUBLINGUAL 0.4 MG BOTTLE OF 25. SL PRN (13:30)
[2020-02-10] MEDS ORDERED: ASPIRIN 325 MG TABLET PO ONE (13:30)
--- NOTE | 2020-02-10 13:32 | PHYS DOC ---
Past Medical History Past Medical History: Anxiety, Diabetes-Type II, High Cholesterol, Migraines Past Surgical History: Cholecystectomy, , Hysterectomy, Knee Replacement Additional Past Surgical Histo: CARDIAC TRIPLE BYPASS CARPAL TUNNEL, C SPINE FUSION Smoking Status: Never Smoker Alcohol Use: None Drug Use: None General Adult EDM: Chief Complaint: CHEST PAIN HPI: HPI: Patient is a 64 year old female with history of high cholesterol, anxiety, diabetes type 2, cardiac bypass, who presents to the ED today complaining of 10 out of 10 sharp, grabbing, left-sided chest pain, symptoms began 2 days ago and got worse overnight. Patient reports symptoms are worse when she is putting pressure on her left chest but get better with certain movements of the LUE. She reports intermittent shortness of breath. Denies any fever, coughing, nasal congestion. She states she tried taking her oxycodone with no relief. Patient reports she has neck problems and is currently in therapy. She states the recently started on exercises where she has to stretch an elastic band with her arms. Review of Systems: Review of Systems: Constitutional: Denies fever or chills. [] Eyes: Denies change in visual acuity. [] HENT: Denies nasal congestion or sore throat. [] Respiratory: Reports shortness of breath. Denies cough Cardiovascular: Reports left-sided chest pain GI: Denies abdominal pain, nausea, vomiting, bloody stools or diarrhea. [] : Denies dysuria. [] Musculoskeletal: Denies back pain or joint pain. [] Integument: Denies rash. [] Neurologic: Denies headache, focal weakness or sensory changes. [] Endocrine: Denies polyuria or polydipsia. [] Lymphatic: Denies swollen glands. [] Psychiatric: Denies depression or anxiety. [] Heart Score: HEART Score for Chest Pain: HEART Score for Chest Pain Response (Comments) Value History Slighlty/Non-Suspicious 0 ECG Normal 0 Age >45 - < 65 1 Risk Factors >3 Risk Factors or Hx CAD 2 Troponin < Normal Limit 0 Total 3 Risk Factors: Risk Factors: DM, Current or recent (<one month) smoker, HTN, HLP, family history of CAD, obesity. Risk Scores: Score 0 - 3: 2.5% MACE over next 6 weeks - Discharge Home Score 4 - 6: 20.3% MACE over next 6 weeks - Admit for Clinical Observation Score 7 - 10: 72.7% MACE over next 6 weeks - Early Invasive Strategies Current Medications: Current Medications Medications (Trade) Dose Ordered Sig/[facility] Start Time Stop Time Status Last Admin Dose Admin Aspirin (Aldo Aspirin) 325 mg 1X ONCE 02/10/20 13:30 02/10/20 13:31 UNV Morphine Sulfate (Morphine Sulfate) 4 mg PRN Q15MIN PRN 02/10/20 13:30 02/11/20 13:29 UNV Nitroglycerin (Nitrostat) 0.4 mg PRN Q5MIN PRN 02/10/20 13:30 02/11/20 13:29 UNV Allergies: Allergies: Allergies Coded Allergies Type Severity Reaction Last Updated Verified prochlorperazine edisylate Allergy Severe DYSPNEA 07/20/15 Yes prochlorperazine maleate Allergy Severe DYSPNEA 07/20/15 Yes Penicillins Allergy Intermediate HIVES 07/20/15 Yes ketorolac tromethamine Allergy Intermediate BLISTERS AROUND IV INJECTION SITE 07/20/15 Yes Physical Exam: PE: Constitutional: Well developed, well nourished, no acute distress, non-toxic appearance. [] HENT: Normocephalic, atraumatic, bilateral external ears normal, oropharynx moist, no oral exudates, nose normal. [] Eyes: PERRLA, EOMI, conjunctiva normal, no discharge. [] Neck: Normal range of motion, no tenderness, supple, no stridor. [] Cardiovascular:Heart rate regular rhythm, no murmur, reproducible left-sided chest pain on palpation of the chest Lungs & Thorax: Bilateral breath sounds clear to auscultation [] Abdomen: Bowel sounds normal, soft, no tenderness, no masses, no pulsatile masses. [] Skin: Warm, dry, no erythema, no rash. [] Back: No tenderness, no CVA tenderness. [] Extremities: No tenderness, no cyanosis, no clubbing, ROM intact, no edema. [] Neurologic: Alert and oriented X 3, normal motor function, normal sensory function, no focal deficits noted. [] Psychologic: Affect normal, judgement normal, mood normal. [] EKG: EKG: [] Radiology/Procedures: Radiology/Procedures: [] Course & Med Decision Making: Course & Med Decision Making Pertinent Labs and Imaging studies reviewed. (See chart for details) This is a 64-year-old female patient presenting to the ED today with left-sided chest pain, symptoms began 2 days ago and have gotten worse today. Heart score is 3 Troponin, EKG are normal. Mag 1.3 given IV mag in the ED. Glucose 199 with normal anion gap hx of DMII. Vitals are stable with normal BP and HR. Chest xray is normal Spoke with Dr. Lion. D/c to home. F/u in clinic in the course of this week. Also encouraged to f/u with Cardiology this week Tresa Disclaimer: Tresa Disclaimer: This electronic medical record was generated, in whole or in part, using a voice recognition dictation system. Departure Departure Impression: Primary Impression: Chest pain Qualified Codes: R07.9 - Chest pain, unspecified Additional Impressions: SOB (shortness of breath) Hyperglycemia Disposition: HOME, SELF-CARE Condition: STABLE Referrals: TOMY LION MD (PCP) follow up in the course of this week Patient Instructions: Chest Pain (Nonspecific), [id number] Additional Instructions: You were evaluated in the emergency room for chest pain, your cardiac work-up is negative for any acute findings, please follow-up with your primary care doctor and retrimmer in the course of this week or next week. MICHAEL SWENSON APRN February 10, 2020 13:32
[2020-02-10 13:42] LABS: BASO # 0.1 x10^3/uL (0.0-0.2); BASO % 1 % (0-3); EOS # 0.1 x10^3/uL (0.0-0.7); EOS % 1 % (0-3); HEMATOCRIT 39.8 % (36.0-47.0); HEMOGLOBIN 12.9 g/dL (12.0-15.5); LYMPH # 2.6 x10^3/uL (1.0-4.8); LYMPH % 32 % (24-48); MEAN CORPUSCULAR HEMOGLOBIN 27 pg (25-35); MEAN CORPUSCULAR HGB CONC 32 g/dL (31-37); MEAN CORPUSCULAR VOLUME 84 fL (79-100); MONO # 0.6 x10^3/uL (0.0-1.1); MONO % 8 % (0-9); NEUT # 4.8 x10^3/uL (1.8-7.7); NEUT % 59 % (31-73); PLATELET COUNT 261 x10^3/uL (140-400); RED BLOOD COUNT 4.76 x10^6/uL (3.50-5.40); RED CELL DISTRIBUTION WIDTH 15.4 % (11.5-14.5); WHITE BLOOD COUNT 8.2 x10^3/uL (4.0-11.0)
--- NOTE | 2020-02-10 13:43 | RAD ---
EXAM: CHEST 1 VIEW History: Chest. COMPARISON: 10/11/2019 TECHNIQUE: Single portable radiograph of the chest FINDINGS: Mild cardiomegaly. The lungs are clear bilaterally. The costophrenic sulci are clear and well demarcated. IMPRESSION: No radiographic evidence of an acute cardiopulmonary process. Electronically signed by: Antolin Keller MD (02/10/2020 1:40 PM) [id number]
[2020-02-10] MEDS: MORPHINE SULFATE 4 MG/ML VIAL. IV/SQ PRN ×2 (13:47→14:47)
[2020-02-10 13:52] LABS: CREATININE 0.7 mg/dL (0.6-1.0); GFR 84.5; POTASSIUM 3.4 mmol/L (3.5-5.1)
[2020-02-10 13:58] LABS: ALBUMIN 3.5 g/dL (3.4-5.0); ALBUMIN/GLOBULIN RATIO 0.8 (1.0-1.7); MAGNESIUM 1.3 mg/dL (1.8-2.4); TOTAL BILIRUBIN 0.3 mg/dL (0.2-1.0); TOTAL PROTEIN 7.7 g/dL (6.4-8.2)
[2020-02-10 14:02] LABS: BILIRUBIN,URINE NEGATIVE (NEG); CLARITY,URINE CLEAR; COLOR,URINE YELLOW; NITRITE,URINE NEGATIVE (NEG); PH,URINE 5.5 (<5.0-8.0); PROTEIN,URINE NEGATIVE (NEG-TRACE); UROBILINOGEN,URINE 0.2 mg/dL (0.2 mg/dL)
[2020-02-10 14:05] LABS: BARBITURATES NEG (NEG); BENZODIAZEPINES POS (NEG); CANNABINOIDS NEG (NEG); COCAINE NEG (NEG); METHADONE NEG (NEG); OPIATES POS (NEG); PHENCYCLIDINE NEG (NEG)
[2020-02-10 14:07] LABS: AMPHETAMINE/METHAMPHETAMINE NEG (NEG)
--- NOTE | 2020-02-10 14:09 | EKG ---
[facility] [address] [place] [address] Test Date: 2020-02-10 Test Time: 13:14:41 Pat Name: TANIYA DIAZ Department: Room: Gender: F Form Raiser: FERNANDEZ : 1955 Requested By: MICHAEL SWENSON Order Number: [id number] Reading MD: Jian Orozco Measurements Intervals [place] Rate: 88 P: 45 GA: 172 QRS: 0 QRSD: 72 T: 49 QT: 376 QTc: 459 Interpretive Statements SINUS RHYTHM LEFTWARD AXIS QRS(T) CONTOUR ABNORMALITY CONSISTENT WITH ANTEROSEPTAL INFARCT AGE UNDETERMINED ABNORMAL ECG Electronically Signed On 02-11-2020 8:16:56 CDT by Jian Orozco
[2020-02-10 14:13] LABS: RBC,URINE 0 /HPF (0-2); SQUAMOUS EPITHELIAL CELL,UR MANY /LPF
[2020-02-10 14:14] LABS: BACTERIA,URINE FEW /HPF (0-FEW); YEAST,URINE PRESENT /HPF
[2020-02-10] MEDS ORDERED: MAGNESIUM SULFATE 1GM 100 ML IV ONE (14:45)
[2020-02-10] MEDS ORDERED: ONDANSETRON PF 4 MG/2 ML VIAL. IVP ONE (15:00)
[2020-02-10 15:05] VITALS: BP 126/58
== END 2020-02-10 16:24 | disposition home or self-care (01) ==
LOC: ER 13:07
DX: R07.89 Other chest pain (principal); R06.02 Shortness of breath; E11.65 Type 2 diabetes mellitus with hyperglycemia; G43.909 Migraine, unspecified, not intractable, without status migrainosus; E78.00 Pure hypercholesterolemia, unspecified; Z95.1 Presence of aortocoronary bypass graft; Z88.0 Allergy status to penicillin; Z88.6 Allergy status to analgesic agent; Z88.8 Allergy status to other drugs, medicaments and biological substances
CPT/HCPCS: 36415; 71045; 80053; 80307; 81001; 82553; 83735; 83880; 84443; 84484; 85025; 93005; 96365; 96375; 96376; 99285; J2270; J2405; J3475

== ENCOUNTER → 2020-12-29 | Outpatient (CLI) | payer BC ==
[2020-07-31 09:10] VITALS: BP 141/63
[~2020-12-29] MED LIST changes: +ASCO500C9 PO; -CLIN300C8 PO; +CLIN300C9 PO; +GLIM2TAB PO; +LINE600T12 PO; +MENT118G TP; -NADO20TA PO; +NADO20TA2 PO; +OXYC-325 PO; +QUET25TA PO; +VALA10008 PO; -WARF-78 PO; +WARF5TAB2 PO
--- NOTE | 2020-12-29 18:47 | CARD ---
MR#: [id number] Date of Study: 12/29/2020 Ordering Physician: TOMY LION, Referring Physician: TOMY LION, Tech: [facility] APPROVED REPORT EXAM: Two-dimensional and M-mode echocardiogram with Doppler and color Doppler. Other Information Quality : AverageHR: 71bpm Rhythm : NSR INDICATION Cardiac Disease: Chest Pain RISK FACTORS Hypertension Obesity Hyperlipidemia Family History Diabetes 2D DIMENSIONS RVDd3.1 (2.9-3.5cm)Left Atrium(2D)4.9 (1.6-4.0cm) IVSd1.2 (0.7-1.1cm)Aortic Root(2D)3.2 (2.0-3.7cm) LVDd4.4 (3.9-5.9cm)LVOT Diameter2.2 (1.8-2.4cm) PWd1.5 (0.7-1.1cm)LVDs2.4 (2.5-4.0cm) FS (%) 44.9 %SV67.7 ml LVEF(%)76.4 (>50%) Aortic Valve AoV Peak Tawanda.153.7cm/sAoV VTI35.2cm AO Peak GR.9.5mmHgLVOT Peak Tawanda.93.2cm/s AO Mean GR.3mmHgAVA (VMAX)2.36cm2 AI P 1/2 [id number] Mitral Valve MV E Ysqshuis641.6cm/sMV DECEL [id number] MV A Fzwzfgym38.0cm/sE/A Ratio1.4 Tricuspid Valve TR P. Uezzsukl642qr/sTR Peak Gr.34mmHg LEFT VENTRICLE The left ventricle is normal size. There is mild concentric left ventricular hypertrophy. The left ve ntricular systolic function is normal. Estimated ejection fraction 55-60%. There is normal LV segmen rosalind wall motion. Transmitral Doppler flow pattern is Grade II-pseudonormal filling dynamics. RIGHT VENTRICLE The right ventricle is normal size. There is normal right ventricular wall thickness. ATRIA The left atrium size is normal. The right atrium size is normal. The interatrial septum is intact wit h no evidence for an atrial septal defect or patent foramen ovale as noted on 2-D or Doppler imaging. AORTIC VALVE The aortic valve is normal in structure and function. Doppler and Color Flow revealed mild aortic reg urgitation. There is no significant aortic valvular stenosis. MITRAL VALVE The mitral valve is normal in structure and function. There is no evidence of mitral valve prolapse. There is no mitral valve stenosis. Doppler and Color-flow revealed mild mitral regurgitation. TRICUSPID VALVE The tricuspid valve is normal in structure and function. Doppler and Color Flow revealed trace to mil d tricuspid regurgitation. Estimated PAP 37 mmHg. There is no tricuspid valve stenosis. PULMONIC VALVE The pulmonary valve is normal in structure and function. Doppler and Color Flow revealed trace pulmon ic valvular regurgitation. GREAT VESSELS The aortic root is normal in size. The ascending aorta is normal in size. The IVC is normal in size a nd collapses >50% with inspiration. PERICARDIAL EFFUSION There is no evidence of significant pericardial effusion. Critical Notification Critical Value: No <Conclusion> The left ventricular systolic function is normal. Estimated ejection fraction 55-60%. There is normal LV segmental wall motion. Mild aortic regurgitation. Mild mitral regurgitation. Trace to mild tricuspid regurgitation. Estimated PAP 37 mmHg. There is no evidence of significant pericardial effusion. Signed by : Jian Orozco, Electronically Approved : 12/29/2020 18:46:52
== END ==
LOC: ECHO 09:01
PROVIDERS: ATTEND Family Medicine
DX: I08.3 Combined rheumatic disorders of mitral, aortic and tricuspid valves (principal)
CPT/HCPCS: 93306

== ENCOUNTER 2021-03-10 19:02 | Emergency (ER) | payer BC ==
[~2021-03-10] VITALS: Ht 167.6 cm; Wt 102.0 kg
--- NOTE | 2021-03-10 19:52 | ED.ADGEN ---
Past Medical History Past Medical History: Anxiety, CAD, Diabetes-Type II, High Cholesterol, Migraines Past Surgical History: Cholecystectomy, Coronary Bypass Surgery, , Hysterectomy, Knee Replacement Additional Past Surgical Histo: CARDIAC TRIPLE BYPASS CARPAL TUNNEL, C SPINE FUSION Smoking Status: Former Smoker Alcohol Use: Rarely Drug Use: None General Adult EDM: Chief Complaint: LOWER EXTREMITY SWELLING HPI: HPI: Patient is a 65 year old worsening lower extremity swelling, redness, and pain today. Patient states his symptoms been going on for approximately 12 weeks and she has been worked up by her primary care provider. Patient states she came in today because she is unable to tolerate the pain and feels like her legs are "going to burst". Patient states they feel warm to the touch. Patient has multiple scratches on her lower extremities and forearms. Patient states is from her family's puppy that has been scratching her. Denies any seeping or weeping from the wound. No purulent discharge. Patient has had both her Covid vaccines. Denies any chest pain or difficulty breathing. Review of Systems: Review of Systems: All other systems within normal limits except for as noted in the HPI Current Medications: Current Medications Medications (Trade) Dose Ordered Sig/Joycelyn Start Time Stop Time Status Last Admin Dose Admin Lorazepam (Ativan Inj) 1 mg 1X ONCE 03/10/21 20:15 03/10/21 20:17 DC 03/10/21 20:16 1 MG Allergies: Allergies: Allergies Coded Allergies Type Severity Reaction Last Updated Verified prochlorperazine edisylate Allergy Severe DYSPNEA 07/20/15 Yes prochlorperazine maleate Allergy Severe DYSPNEA 07/20/15 Yes Penicillins Allergy Intermediate HIVES 07/20/15 Yes ketorolac tromethamine Allergy Intermediate BLISTERS AROUND IV INJECTION SITE 07/20/15 Yes Physical Exam: PE: Constitutional: Well developed, well nourished, no acute distress, non-toxic appearance. [] HENT: Normocephalic, atraumatic, bilateral external ears normal, nose normal. [] Eyes: PERRLA, conjunctiva normal, no discharge. [] Neck: No rigidity, supple, no stridor. [] Cardiovascular: Regular rate and rhythm, brisk cap refill [] Lungs & Thorax: Non labored symmetric respirations, no tachypnea or respiratory distress [] Abdomen: Soft, nondistended. Skin: Warm, dry, no erythema, no rash. Erythema to bilateral lower extremities below knee. Multiple small superficial abrasions to bilateral upper and lower extremities. [] Back: Unremarkable Extremities: No deformities, range of motion grossly intact, bilateral lower extremity edema [] Neurologic: Alert and oriented X 3, no focal deficits noted. [] Psychologic: Affect normal, judgement normal, mood normal. [] Current Patient Data: Labs: Laboratory Tests Test 03/10/21 20:00 03/10/21 20:55 White Blood Count 6.6 x10^3/uL (4.0-11.0) Red Blood Count 3.99 x10^6/uL (3.50-5.40) Hemoglobin 11.3 g/dL (12.0-15.5) L Hematocrit 34.1 % (36.0-47.0) L Mean Corpuscular Volume 85 fL (79-100) Mean Corpuscular Hemoglobin 28 pg (25-35) Mean Corpuscular Hemoglobin Concent 33 g/dL (31-37) Red Cell Distribution Width 13.0 % (11.5-14.5) Platelet Count 225 x10^3/uL (140-400) Neutrophils (%) (Auto) 39 % (31-73) Lymphocytes (%) (Auto) 50 % (24-48) H Monocytes (%) (Auto) 8 % (0-9) Eosinophils (%) (Auto) 2 % (0-3) Basophils (%) (Auto) 1 % (0-3) Neutrophils # (Auto) 2.6 x10^3/uL (1.8-7.7) Lymphocytes # (Auto) 3.3 x10^3/uL (1.0-4.8) Monocytes # (Auto) 0.5 x10^3/uL (0.0-1.1) Eosinophils # (Auto) 0.1 x10^3/uL (0.0-0.7) Basophils # (Auto) 0.1 x10^3/uL (0.0-0.2) D-Dimer (Desiree) 0.61 ug/mlFEU (0.00-0.50) H Sodium Level 138 mmol/L (136-145) Potassium Level 4.1 mmol/L (3.5-5.1) Chloride Level 101 mmol/L (98-107) Carbon Dioxide Level 24 mmol/L (21-32) Anion Gap 13 (6-14) Blood Urea Nitrogen 22 mg/dL (7-20) H Creatinine 1.1 mg/dL (0.6-1.0) H Estimated GFR (Cockcroft-Gault) 50.0 BUN/Creatinine Ratio 20 (6-20) Glucose Level 246 mg/dL (70-99) H Calcium Level 9.4 mg/dL (8.5-10.1) Phosphorus Level 4.5 mg/dL (2.6-4.7) Magnesium Level 1.4 mg/dL (1.8-2.4) L Total Bilirubin 0.4 mg/dL (0.2-1.0) Aspartate Amino Transferase (AST) 12 U/L (15-37) L Alanine Aminotransferase (ALT) 17 U/L (14-59) Alkaline Phosphatase 39 U/L (46-116) L Creatine Kinase 89 U/L (26-192) Troponin I Quantitative < 0.017 ng/mL (0.000-0.055) C-Reactive Protein, Quantitative 4.8 mg/L (0-3.3) H EZ-Fwk-B-Type Natriuretic Peptide 266 pg/mL (0-124) H Total Protein 7.3 g/dL (6.4-8.2) Albumin 3.8 g/dL (3.4-5.0) Albumin/Globulin Ratio 1.1 (1.0-1.7) Thyroid Stimulating Hormone (TSH) 2.911 uIU/mL (0.358-3.74) Urine Collection Type Unknown Urine Color Yellow Urine Clarity Clear Urine pH 5.0 (<5.0-8.0) Urine Specific [place] 1.020 (1.000-1.030) Urine Protein Negative mg/dL (NEG-TRACE) Urine Glucose (UA) 250 mg/dL (NEG) Urine Ketones (Stick) Negative mg/dL (NEG) Urine Blood Negative (NEG) Urine Nitrite Negative (NEG) Urine Bilirubin Negative (NEG) Urine Urobilinogen Dipstick 0.2 mg/dL (0.2 mg/dL) Urine Leukocyte Esterase Negative (NEG) Urine RBC 0 /HPF (0-2) Urine WBC 1-4 /HPF (0-4) Urine Squamous Epithelial Cells Mod /LPF Urine Bacteria 0 /HPF (0-FEW) Urine Hyaline Casts Few /HPF Urine Mucus Slight /LPF Laboratory Tests 03/10/21 20:00 Laboratory Tests 03/10/21 20:00 Vital Signs: Vital Signs Date Time Temp Pulse Resp B/P (MAP) Pulse Ox O2 Delivery O2 Flow Rate FiO2 03/10/21 19:45 98.6 79 20 175/75 (108) 98 Room Air 98.6 EKG: EKG: Sinus rhythm, heart rate 70 bpm, normal axis, no ST elevation or depression, no ectopy. [] Heart Score: C/O Chest Pain: No Risk Factors: Risk Factors: DM, Current or recent (<one month) smoker, HTN, HLP, family history of CAD, obesity. Risk Scores: Score 0 - 3: 2.5% MACE over next 6 weeks - Discharge Home Score 4 - 6: 20.3% MACE over next 6 weeks - Admit for Clinical Observation Score 7 - 10: 72.7% MACE over next 6 weeks - Early Invasive Strategies Radiology/Procedures: Radiology/Procedures: [facility] [address] [place] [address] IMAGING REPORT Signed PATIENT: TANIYA DIAZ ACCOUNT: [id number] : 1955 LOCATION: ER AGE: 65 SEX: F EXAM STATUS: REG ER ORD. PHYSICIAN: GIO THOMAS MD REASON: redness and swelling PROCEDURE: VENOUS LOWER EXT BILATERAL STUDY: US BILATERAL LOWEREXTREMITY VENOUS DOPPLER INDICATION: Lower extremity swelling and erythema. DVT. TECHNIQUE: Color-flow and pulsed wave duplex ultrasound with compression of venous structures of the bilateral lower extremities. COMPARISON: None. FINDINGS: Duplex ultrasound with compression of the deep venous structures of the jose ateral lower extremities from the common femoral vein through the popliteal vein is negative for DVT. The posterior tibial and peroneal veins are segmentally visualized and patent where seen. Normal venous waveforms and augmentation are noted throughout. Edematous subcutaneous tissues. IMPRESSION: No deep venous thrombosis throughout either lower extremity. Electronically signed by: WILSON GANNON MD (03/10/2021 10:39 PM) [facility] DICTATED and SIGNED BY: WILSON GANNON MD DATE: 03/10/21 [id number] [] Course & Med Decision Making: Course & Med Decision Making Pertinent Labs and Imaging studies reviewed. (See chart for details) [] Dragon Disclaimer: Dragon Disclaimer: This electronic medical record was generated, in whole or in part, using a voice recognition dictation system. Departure Departure Impression: Primary Impression: Edema of both lower extremities Disposition: HOME / SELF CARE / HOMELESS Condition: IMPROVED Referrals: TOMY LION MD (PCP) Patient Instructions: Peripheral Edema GIO THOMAS MD Mar 10, 2021 19:52
[2021-03-10 20:11] LABS: BASO # 0.1 x10^3/uL (0.0-0.2); BASO % 1 % (0-3); EOS # 0.1 x10^3/uL (0.0-0.7); EOS % 2 % (0-3); HEMATOCRIT 34.1 % (36.0-47.0); HEMOGLOBIN 11.3 g/dL (12.0-15.5); LYMPH # 3.3 x10^3/uL (1.0-4.8); LYMPH % 50 % (24-48); MEAN CORPUSCULAR HEMOGLOBIN 28 pg (25-35); MEAN CORPUSCULAR HGB CONC 33 g/dL (31-37); MEAN CORPUSCULAR VOLUME 85 fL (79-100); MONO # 0.5 x10^3/uL (0.0-1.1); MONO % 8 % (0-9); NEUT # 2.6 x10^3/uL (1.8-7.7); NEUT % 39 % (31-73); PLATELET COUNT 225 x10^3/uL (140-400); RED BLOOD COUNT 3.99 x10^6/uL (3.50-5.40); WHITE BLOOD COUNT 6.6 x10^3/uL (4.0-11.0)
[2021-03-10 20:24] LABS: CALCIUM 9.4 mg/dL (8.5-10.1); CREATININE 1.1 mg/dL (0.6-1.0); POTASSIUM 4.1 mmol/L (3.5-5.1)
[2021-03-10 20:30] LABS: ALBUMIN 3.8 g/dL (3.4-5.0); ALBUMIN/GLOBULIN RATIO 1.1 (1.0-1.7); C-REACTIVE PROTEIN 4.8 mg/L (0-3.3); MAGNESIUM 1.4 mg/dL (1.8-2.4); PHOSPHORUS 4.5 mg/dL (2.6-4.7); TOTAL BILIRUBIN 0.4 mg/dL (0.2-1.0); TOTAL PROTEIN 7.3 g/dL (6.4-8.2)
[2021-03-10 21:04] LABS: BILIRUBIN,URINE NEGATIVE (NEG); CLARITY,URINE CLEAR; COLOR,URINE YELLOW; NITRITE,URINE NEGATIVE (NEG); PROTEIN,URINE NEGATIVE (NEG-TRACE); UROBILINOGEN,URINE 0.2 mg/dL (0.2 mg/dL)
[2021-03-10 21:09] LABS: HYALINE CASTS, URINE FEW /HPF; RBC,URINE 0 /HPF (0-2)
[2021-03-10 21:10] LABS: BACTERIA,URINE 0 /HPF (0-FEW)
--- NOTE | 2021-03-10 22:41 | RAD ---
STUDY: US BILATERAL LOWEREXTREMITY VENOUS DOPPLER INDICATION: Lower extremity swelling and erythema. DVT. TECHNIQUE: Color-flow and pulsed wave duplex ultrasound with compression of venous structures of the bilateral lower extremities. COMPARISON: None. FINDINGS: Duplex ultrasound with compression of the deep venous structures of the bilateral lower extremities f rom the common femoral vein through the popliteal vein is negative for DVT. The posterior tibial and peroneal veins are segmentally visualized and patent where seen. Normal veno us waveforms and augmentation are noted throughout. Edematous subcutaneous tissues. IMPRESSION: No deep venous thrombosis throughout either lower extremity. Electronically signed by: WILSON GANNON MD (03/10/2021 10:39 PM) [facility]
[2021-03-10 23:10] VITALS: BP 145/59
--- NOTE | 2021-03-11 08:58 | EKG ---
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
== END 2021-03-10 23:15 | disposition home or self-care (01) ==
LOC: ER 19:02
DX: R60.0 Localized edema (principal); G43.909 Migraine, unspecified, not intractable, without status migrainosus; E11.9 Type 2 diabetes mellitus without complications; E78.00 Pure hypercholesterolemia, unspecified; I25.10 Atherosclerotic heart disease of native coronary artery without angina pectoris; Z87.891 Personal history of nicotine dependence; Z90.49 Acquired absence of other specified parts of digestive tract; Z90.710 Acquired absence of both cervix and uterus; Z88.0 Allergy status to penicillin; Z88.6 Allergy status to analgesic agent; Z88.8 Allergy status to other drugs, medicaments and biological substances
CPT/HCPCS: 36415; 80053; 81001; 82550; 83735; 83880; 84100; 84443; 84484; 85025; 85379; 86140; 93005; 93970; 96374; 99285; J2060